=== PATIENT | male | born 1980 | race Caucasian/White ===

== ENCOUNTER 2016-11-27 08:50 | Inpatient (IN) ==
--- NOTE | 2016-11-27 09:12 | Emergency Department Note ---
START Narrative - START START: I examined this patient and my medical decision-making was reviewed with the HOUSE SERVANT/PA/Advanced Practice Nurse/Resident Physician. I agree with the documented findings, disposition and treatment plan as described except to the extent set forth below. Patient does have a history of spontaneous pneumothorax on the right. I did rev the previous record and reviewed his previous chest x-ray. He does have shortness of breath with hypoxemia and oxygen saturation 87% on room air. Does have decreased breath sounds on the right. We will place a Heimlich valve on the right. 0911 The patient did have a pigtail catheter placed in the right chest midclavicular line over the fourth rib and this was done by the internal medicine pump house technician and I was present for 100% of time while the patient had the procedure performed. The patient did have a catheter placed over the fourth rib in the midclavicular line after prepping and draping in the usual sterile fashion. This was done without complication and he did have lidocaine injected. A repeat chest x-ray did show partial expansion with just the valve placed however after that he was put on negative suction and now the lung is reexpanded on a additional x-ray. Thoracic has been constant. 1114
[2016-11-27] MEDS ORDERED: Ondansetron 4 MG/2 ML VIAL ONE (09:39)
[2016-11-27] MEDS ORDERED: *HR* LORazepam 2 MG/ML VIAL ONE (09:39)
--- NOTE | 2016-11-27 10:04 | Emergency Department Note ---
Disposition Clinical Impression: Pneumothorax, right, Recurrent spontaneous pneumothorax Disposition: Admitted As Inpatient Condition: Fair Forms: ED Satisfaction Letter SOB HPI - General Chief Complaint: ED Shortness of Breath/Dyspnea Stated Complaint: "collapsed lung" Time Seen by Provider: 11/27/16 09:00 Source: patient Limitations: no limitations - History of Present Illness 36 Y/O male with hx of multiple pneumothorax presented with chief complaint of shortness of breath. Patient woke up today with right pleuritic chest pain that radiated to the back, described as sharp, sudden onset. He has had similar pain before and was diagnosed with pneumothorax multiple times in the past. His previous admission was in may 2016. Chest x-ray shows complete right lung collapse due to pneumothorax. - Related Data Home Medications Medication Instructions Recorded Confirmed Acetaminophen [Tylenol] 1,000 mg PO Q6HR PRN 11/27/16 11/27/16 Allergies Allergy/AdvReac Type Severity Reaction Status Date / Time Penicillins Allergy Rash Verified 05/23/16 10:58 Review of Systems: ROS: Denies fevers, chills, denies pain in abdomen, lower extremities, syncope, blurry vision Admits to shortness of breath, pleuritic chest pain, cough, Past Medical History - Past Medical History Medical history: Reports: other Surgical history: Reports: other (Chest tube) Psychiatric history: Reports: no psych history - Social History Smoking Status: Current every day smoker Smokeless Tobacco Status: No Alcohol use: Reports: none Drug use: Reports: marijuana Physical Exam - General Limitations: no limitations General appearance: alert - Head Head exam: atraumatic, normocephalic - Eye Eye exam: Present: PERRL, EOMI - Neck Neck exam: Present: full ROM, trachea midline - Chest Chest inspection: Present: normal inspection - Respiratory Respiratory exam: Present: normal lung sounds bilaterally (Diminished right lung sounds upper lobe and absent lung sounds lower lobe. Normal left lobe lung sounds.), respiratory distress, accessory muscle use - Cardiovascular Cardiovascular exam: Present: regular rate, normal rhythm, +S1, +S2 - Abdominal Exam Abdominal exam: Present: soft, Non-Tender. Absent: distention - Psychiatric Psychiatric exam: Present: normal affect, anxious Course Course Narrative: Patient had a pigtail catheter inserted in the midclavicular fourth intercostal space and attached to negative pressure Repeat chest x-ray shows expansion of right lung. Patient was okay to be admitted. Dr. Swanson accepted admission. Dr. Mcbride was notified as well. Vital Signs Temperature 97.5 F L 11/27/16 08:55 Pulse Rate 71 11/27/16 08:55 Respiratory Rate 20 11/27/16 08:55 Blood Pressure 125/74 11/27/16 08:55 O2 Sat by Pulse Oximetry 87 11/27/16 08:55 Temperature 97.5 F L 11/27/16 08:55 Pulse Rate 67 11/27/16 10:43 Respiratory Rate 16 11/27/16 10:43 Blood Pressure 131/88 11/27/16 10:43 O2 Sat by Pulse Oximetry 100 11/27/16 10:43 Oxygen Delivery Oxygen Delivery Nasal Cannula Procedures - Chest Tube Chest Tube 1 Chest Tube Location: fourth interspace Chest Tube Prep: betadine prep, sterile drapes applied Local Anesthetic: lidocaine 1% Incision Made With: #10 blade Post Procedure: sutured to skin, sterile dressing applied Tube Drainage: none Amount of Initial Drainage (cc's): 0 Post Procedure CXR?: Yes Patient Tolerated Procedure: Yes Progress: Consent was obtained from patient and risks and benefits of procedure were explained. Patient was laying supine with head of bed elevated at 45 degrees and right arm raised above her head. Jevon was made at 4th rib and prepped and draped under sterile fashion. Once percent lidocaine was used to anesthetize the surrounding skin. 2 cm incision was made at the fourth rib. Pig-tail catheter was inserted through the incision and over the fourth rib into the pleural space until a roberts of air was felt. Catheter was advanced further while needle was pulled out. Catheter was sutured in place and dressing applied. CXR was ordered. Patient tolerated procedure. Dr. Pastrana was present for the entire procedure.
[2016-11-27] MEDS ORDERED: *HR* HYDROmorphone (PF) 1 MG/ML SYRINGE IVP ONE (11:54)
[2016-11-27 12:24] LABS: Basophils % 0.4 %; Eosinophils % 0.4 %; Hematocrit 46.1 % (37.5-50.1); Hemoglobin 15.7 g/dL (12.9-16.9); Immature Granulocytes % 0.2 % (0-4); Lymphocytes # 1.1 K/mcL (0.6-4.6); Lymphocytes % 10.7 %; Mean Corpuscular HGB Conc 34.1 g/dL (31.6-35.5); Mean Corpuscular Hemoglobin 29.7 pg (28.0-33.3); Mean Corpuscular Volume 87.3 fL (83.0-100.0); Monocytes # 0.5 K/mcL (0.0-1.3); Monocytes % 5.2 %; Neutrophils # 8.2 K/mcL (1.6-8.9); Platelet Count 157 K/mcL (140-400); Red Blood Count 5.28 M/mcL (4.19-5.50); Segmented Neutrophils % 83.1 %
[2016-11-27 12:32] LABS: INR 1.2; Prothrombin Time 13.5 Seconds (9.4-12.1)
[2016-11-27 12:37] LABS: BUN/Creatinine Ratio 16 (6-26); Blood Urea Nitrogen 13 mg/dL (8-26); Calcium 9.3 mg/dL (8.6-10.8); Carbon Dioxide 25 mEq/L (19-29); Chloride 106 mEq/L (98-109); Glucose 89 mg/dL (70-99); Magnesium 2.1 mg/dL (1.6-2.6); Osmolality,Calculated 288 (280-300); Sodium 139 mEq/L (136-145); eGFR For African Americans > 60 (> 60); eGFR For Non-African Americans > 60 (> 60)
--- NOTE | 2016-11-27 13:46 | Internal Med History&Physical ---
Date of Encounter: 11/27/16 Time of Encounter: 13:43 Assessment and Plan (1) Pneumothorax, right Current visit: No Status: Resolved Spontaneous right-sided pneumothorax. This is the 5th episode. Pigtail catheter please connected to wall suction. No underwater seal was placed according to surgery recommendations. Will admit to telemetry that appreciate cardiothoracic surgery input. nasal oxygen as needed. (2) DVT prophylaxis Current visit: No Status: Acute Subcutaneous heparin Internal Medicine - H&P: HPI Chief complaint: chest pain and SOB History of present illness: Mr. García is a 36 year old male 25 pack your smoking history the past medical history of spontaneous pneumothorax presents to the emergency room today with sudden onset right-sided chest pain and shortness of breath since this morning. Pain was sharp and looked similar to his prior presentations of pneumothorax. This is his 5thn episodes of pneumothorax. When questioned about the reason for that he does not have any COPD no history of long pathology but it was just e.g. public spontaneous pneumothorax. Workup emergency room showed a large right-sided pneumothorax and lung collapse. Pigtailed catheter was placed by ER physician and connected to wall suction. No underwater seal was placed according to cardiothoracic surgery recommendations. Patient hemodynamically stable during my interview speaking in full sentences. No fevers chills Past Med Surg Social Fam HX - Past Medical History Medical history: other Psychiatric history: no psych history - Past Surgical History Surgical History: other (Chest tube) - Social History Smoking Status: Current every day smoker Smokeless Tobacco Status: No Alcohol use: none Drug use: marijuana Internal Medicine - H&P: Meds Acetaminophen [Tylenol] 1,000 mg PO Q6HR PRN 11/27/16 [History] Allergies Penicillins Allergy (Verified 05/23/16 10:58) Rash All Systems PM: A 10-system review of systems was performed and is negative for pertinent findings except as documented above in the HPI. Review of systems: 10 point review systems is negative except for HPI - Constitutional Vitals: Temp Pulse Resp BP Pulse Ox 97.5 F L 57 16 113/75 97 11/27/16 08:55 11/27/16 11:44 11/27/16 12:37 11/27/16 12:37 11/27/16 11:44 Exam: Gen.: patient is alert oriented times 3 stress cardiac: normal S1 S2 no additional sounds not tachycardic chest: diminish air entry on the right side. Abdomen: soft nontender nondistended normal bowel sounds neuronal focal deficits Internal Med - H&P Results - Labs CBC & Chem 7: 11/27/16 12:06 11/27/16 12:06 Labs: Short CBC 11/27/16 Range/Units 12:06 WBC 9.8 (4.3-11.1) K/mcL Hgb 15.7 (12.9-16.9) g/dL Hct 46.1 (37.5-50.1) % Plt Count 157 (140-400) K/mcL Neutrophils # 8.2 (1.6-8.9) K/mcL BMP 11/27/16 12:06 Sodium 139 Potassium 4.0 Chloride 106 Carbon Dioxide 25 BUN 13 Creatinine 0.82 Glucose 89 Calcium 9.3
--- NOTE | 2016-11-27 14:09 | Cardiothoracic Consult Note ---
Date of Encounter: 11/27/16 Time of Encounter: 14:06 Assessment and Plan (1) Pneumothorax, right Current Visit: No Status: Resolved The assessment and plan as outlined above was discussed with the patient and/or family members who expressed understanding and agreement. All questions were answered. The patient presented with a 100% right total pneumothorax. Chest x-ray reveals that this is totally resolved with a chest tube. This is the fourth episode of spontaneous pneumothorax on the right side. He has had 1 episode on the left side. I recommended that the patient undergo surgery. This would be either right thoracoscopy or thoracotomy with stapling of blebs, mechanical and chemical pleurodesis. Risks would include , infection, pneumonia, bleeding and recurrent pneumothorax either on the right or left sides. The procedure, its risks, benefits and alternatives were explained. He states that he needs to talk to 3 or 4 people and will let us know tomorrow. At this point he has no questions. - History of Present Illness History of present illness: Mr. García is a 36 year old male History of present illness. Patient is a 36-year-old gentleman who awoke this morning with pain in his right chest and shortness of breath. Chest x-ray done in the emergency room revealed 100%, total right pneumothorax. He was treated with a chest tube with complete resolution of the pneumothorax. This is his fourth episode of right spontaneous pneumothorax. We had seen the patient in the hospital in May 2016 and recommended surgery at that time. However, the patient refused and did not follow up with our office. Past medical history. The patient has been healthy. Patient's at home include aspirin and Tylenol. He is allergic to penicillin. Social history. He lives in [place]. He works [employer]. He used to smoke 2 packs of cigarettes per day, but claims to be presently smoking less than a half pack of cigarettes per day AGAINST MEDICAL ADVICE. Does not drink alcohol. Occasionally smokes marijuana. Family history is negative for collapsed lung. Review of systems is otherwise negative. Past Med Surg Social Fam HX - Past Medical History Medical history: other Psychiatric history: no psych history - Past Surgical History Surgical History: other (Chest tube) - Social History Smoking Status: Current every day smoker Smokeless Tobacco Status: No Alcohol use: none Drug use: marijuana Medications and Allergies Acetaminophen [Tylenol] 1,000 mg PO Q6HR PRN 11/27/16 [History] Allergies Penicillins Allergy (Verified 05/23/16 10:58) Rash All Systems Review: A 10-system review of systems was performed and is negative for pertinent findings except as documented above in the HPI. Physical Examination Vital Signs, Last 4 Hours Pulse Resp BP Pulse Ox 11/27/16 13:48 86 18 114/73 94 11/27/16 12:37 16 113/75 Pupils are equal, round and reactive to light and accommodation. His teeth are in extremely poor repair. Neck is supple. Trachea in the midline. No thyromegaly or carotid bruits. Lungs are clear to percussion and auscultation. The chest tube has a small air leak with cough. Heart is in a regular rate and rhythm. No murmurs, gallops or rubs. Abdomen is benign. No tenderness, rebound or guarding. No hepatosplenomegaly or masses. Extremities without edema. 2+ pulses. Cranial nerves, motor and sensory intact. He is awake, alert and oriented 3. Results 11/27/16 12:06 11/27/16 12:06 Lab Results, Last 24 hours 11/27/16 11/27/16 11/27/16 12:06 12:06 12:06 WBC 9.8 Hgb 15.7 Hct 46.1 Plt Count 157 INR 1.2 Sodium 139 Potassium 4.0 Chloride 106 Carbon Dioxide 25 BUN 13 Creatinine 0.82 Glucose 89 Calcium 9.3 Magnesium 2.1 Consult Discharge Plan - Plan Referrals: NO,PCP [Primary Care Provider] -
[2016-11-27] MEDS: *HR* Heparin 5,000 UNIT/ML VIAL SQ SCH (17:56)
[2016-11-27] MEDS: *HR* Morphine 2 MG/ML SYRINGE IVP PRN (21:24)
[2016-11-28 05:02] LABS: Basophils # 0.1 K/mcL (0.0-0.2); Eosinophils # 0.2 K/mcL (0.0-0.6); Eosinophils % 2.8 %; Hematocrit 46.6 % (37.5-50.1); Hemoglobin 15.4 g/dL (12.9-16.9); Immature Granulocytes % 0.3 % (0-4); Lymphocytes # 2.2 K/mcL (0.6-4.6); Lymphocytes % 35.8 %; Mean Corpuscular Hemoglobin 28.9 pg (28.0-33.3); Mean Corpuscular Volume 87.4 fL (83.0-100.0); Mean Platelet Volume 10.9 fL (9.4-12.4); Monocytes # 0.5 K/mcL (0.0-1.3); Monocytes % 8.8 %; Neutrophils # 3.1 K/mcL (1.6-8.9); Platelet Count 163 K/mcL (140-400); Red Blood Count 5.33 M/mcL (4.19-5.50); Red Cell Distribution Width 12.3 % (11.5-14.5); Segmented Neutrophils % 51.3 %
[2016-11-28 05:25] LABS: BUN/Creatinine Ratio 14 (6-26); Blood Urea Nitrogen 12 mg/dL (8-26); Calcium 9.2 mg/dL (8.6-10.8); Carbon Dioxide 29 mEq/L (19-29); Chloride 105 mEq/L (98-109); Glucose 100 mg/dL (70-99); Magnesium 1.9 mg/dL (1.6-2.6); Osmolality,Calculated 292 (280-300); Potassium 4.1 mEq/L (3.5-4.5); Sodium 141 mEq/L (136-145); eGFR For African Americans > 60 (> 60); eGFR For Non-African Americans > 60 (> 60)
[2016-11-28] MEDS: *HR* Heparin 5,000 UNIT/ML VIAL SQ SCH ×2 (06:07→21:35)
[2016-11-28] MEDS: *HR* Morphine 2 MG/ML SYRINGE IVP PRN ×2 (06:09→11:24)
--- NOTE | 2016-11-28 08:04 | Cardiothoracic Progress Note ---
Date of Encounter: 11/28/16 Time of Encounter: 08:00 - Assessment and plan (1) Pneumothorax, right Current Visit: No Status: Resolved This is the fourth admission for the patient's right spontaneous pneumothorax. Chest tube was inserted and he has a small residual pneumothorax based on chest CT last night. The patient was given the option/strong recommendation that he undergo a right thoracoscopy/thoracotomy with apical bleb resection and mechanical pleurodesis. Currently he is hesitant to undergo this procedure, stating that he is the only number the family regarding paycheck and he cannot afford to be off during the required postoperative period. He is considering the operation, but will wait until the winter time. The chest tube was placed to waterseal since there was no air leak and chest x-ray repeated tomorrow. If the chest x-ray shows no pneumothorax chest tube will be removed. The assessment and plan as outlined above was discussed with the patient and/or family members who expressed understanding and agreement. All questions were answered. - Subjective Interval history: The patient is resting comfortably in his hospital bed. Vital Signs, Last 4 Hours Temp Pulse Resp BP Pulse Ox 11/28/16 07:02 98.0 F 49 15 103/52 98 11/28/16 05:02 97.5 F L 65 18 116/62 Clinical Data, last 8 Hours Output, Chest Tube Drainage 0 Amount [Right Lateral Chest] Output, Chest Tube Drainage 0 Amount [Right Lateral Chest] Output, Urine Amount 0 Weight 11/26/16 11/27/16 11/28/16 23:59 23:59 23:59 Weight 71.6 kg - Physical Examination General: Conversant, No Apparent Distress Neck: No JVD, Normal carotid pulses Cardiac: Reg Rate and Rhythm, Normal S1 and S2, No Murmur Incision: No signs of infection Chest tubes: Minimal drainage, Other (No air leak on suction.) Lungs: Normal Breath Sounds, No Wheeze, Rales, Rhonchi Neuro: Alert and responsive, No focal deficits noted Vascular: Normal capillary refill Musculoskeletal: No Chest Wall Tenderness Extremities: No Clubbing, No Cyanosis, No Edema - Labs 11/28/16 04:28 11/28/16 04:28 Lab Results, Last 24 hours 11/28/16 11/28/16 04:28 04:28 WBC 6.1 Hgb 15.4 Hct 46.6 Plt Count 163 Sodium 141 Potassium 4.1 Chloride 105 Carbon Dioxide 29 BUN 12 Creatinine 0.88 Glucose 100 H Calcium 9.2 Magnesium 1.9 - VTE Documentation of Mechanical Device: Intermittent pneumatic compression device Consult Discharge Plan - Plan Referrals: NO,PCP [Primary Care Provider] -
--- NOTE | 2016-11-28 14:16 | Internal Med Progress Note ---
Date of Encounter: 11/28/16 Time of Encounter: 11:30 - Assessment and plan (1) Recurrent spontaneous pneumothorax Current Visit: Yes Status: Acute Assessment and plan: Chest tube currently to water seal. Anticipate removal tomorrow. He wants to wait till winter to have further surgery. (2) Tobacco use disorder Current Visit: No Status: Acute Assessment and plan: Cessation counselling. - Subjective Interval history: Mr. García is currently admitted for acute spontaneous R PTX. He is high risk due to potential for worsening respiratory status - chest tube. Mr. García feels OK. No issues overnight. Breathing is OK. Chest tube to water seal at this time and no air leak. No fever or chills. - Constitutional Vitals: Temp Pulse Resp BP Pulse Ox 98.4 F 43 15 112/70 98 11/28/16 11:18 11/28/16 11:18 11/28/16 11:18 11/28/16 11:18 11/28/16 11:18 General appearance: Present: A&O X 3, pleasant, answers questions appropriately - Head Head exam: Present: normocephalic - Eye Eye exam: Present: EOMI, conjuntiva pink - ENT ENT exam: Present: mucous membranes dry - Respiratory Respiratory exam: Present: CTAB. Absent: rhonchi, wheezes - Cardiovascular Cardiovascular exam: Present: RRR. Absent: tachycardia - GI/Abdominal GI/Abdominal exam: Present: soft. Absent: tenderness - Extremities Exam Extremities exam: Present: warm. Absent: pedal edema, tenderness - Neurological Exam Neurological exam: Present: alert, oriented X3, no focal deficits - Psychiatric Psychiatric exam: Present: normal affect, normal mood - Skin Skin exam: Present: warm. Absent: rash Internal Medicine: Result - Labs CBC & Chem 7: 11/28/16 04:28 11/28/16 04:28 Labs: Short CBC 11/28/16 Range/Units 04:28 WBC 6.1 (4.3-11.1) K/mcL Hgb 15.4 (12.9-16.9) g/dL Hct 46.6 (37.5-50.1) % Plt Count 163 (140-400) K/mcL Neutrophils # 3.1 (1.6-8.9) K/mcL BMP 11/28/16 04:28 Sodium 141 Potassium 4.1 Chloride 105 Carbon Dioxide 29 BUN 12 Creatinine 0.88 Glucose 100 H Calcium 9.2 - ABG Interpretation ABG results: PT/INR, D-dimer PT 13.5 Seconds (9.4-12.1) H 11/27/16 12:06 - VTE Documentation of Mechanical Device: Intermittent pneumatic compression device Consult Discharge Plan - Plan Referrals: NO,PCP [Primary Care Provider] -
[2016-11-28] MEDS ORDERED: *HR* HYDROcodone/Acet 5/325 mg TABLET PO PRN (14:57)
[2016-11-28] MEDS ORDERED: *HR* Morphine 2 MG/ML SYRINGE IVP PRN (14:58)
[2016-11-29 06:19] VITALS: BP 107/61
[2016-11-29] MEDS: *HR* Heparin 5,000 UNIT/ML VIAL SQ SCH (06:34)
--- NOTE | 2016-11-29 08:52 | Cardiothoracic Progress Note ---
Date of Encounter: 11/29/16 Time of Encounter: 08:50 - Assessment and plan (1) Pneumothorax, right Current Visit: No Status: Resolved The patient had no respiratory complaints yesterday or throughout the night. The Pleur-evac had no air leak with cough and the chest tube was removed. The patient may be discharged home later today. The dressing should remain in place until Thursday, December 01, 2016. After that time the dressing may repeat removed and the patient may shower. The patient should follow up with Dr. Bryan Mcbride in 3-4 weeks. The assessment and plan as outlined above was discussed with the patient and/or family members who expressed understanding and agreement. All questions were answered. - Subjective Interval history: The patient is resting comfortably in his hospital bed. He has no complaints of shortness of breath. Vital Signs, Last 4 Hours Temp Pulse Resp BP Pulse Ox 11/29/16 06:18 97.4 F L 47 14 107/61 96 Weight 11/27/16 11/28/16 11/29/16 23:59 23:59 23:59 Weight 71.6 kg 67.2 kg - Physical Examination General: Conversant, No Apparent Distress Neck: No JVD, Normal carotid pulses Cardiac: Reg Rate and Rhythm, Normal S1 and S2, No Murmur Incision: No signs of infection, Dry/intact dressing Chest tubes: Minimal drainage, Other (No air leak with cough.) Lungs: Normal Breath Sounds, No Wheeze, Rales, Rhonchi Neuro: Alert and responsive, No focal deficits noted Vascular: Normal capillary refill Musculoskeletal: No Chest Wall Tenderness - Labs 11/28/16 04:28 11/28/16 04:28 - Imaging Chest Xray: image reviewed (No pneumothorax.) - VTE Documentation of Mechanical Device: Intermittent pneumatic compression device Consult Discharge Plan - Plan Referrals: NO,PCP [Primary Care Provider] -
--- NOTE | 2016-11-29 11:32 | Discharge Summary ---
Date of Encounter: 11/29/16 Time of Encounter: 10:00 - Discharge Diagnosis (1) Recurrent spontaneous pneumothorax Priority: Primary Status: Acute (2) Tobacco use disorder Priority: Secondary Status: Acute - Discharge Medications Prescriptions: HYDROcodone/Acet 5/325 mg [Wishek 5-325 mg] 1 tab PO Q6HR PRN #20 tablet PRN Reason: Moderate Pain Home Medications: HYDROcodone/Acet 5/325 mg [Wishek 5-325 mg] 1 tab PO Q6HR PRN #20 tablet [Rx] Allergies/Adverse Reactions: Allergies Penicillins Allergy (Verified 05/23/16 10:58) Rash Date of admission: 11/27/16 14:39 Primary care physician: PCP NO Consults: Cardiothoracic surgery Discharging clinician: Trev Ferrer Anticipated date of discharge: 11/29/16 - Patient Status Disposition: Home, Self-Care Condition: Good Functional capacity at discharge: independent ambulation Overall status at discharge: patient is back to baseline - Discharge Instructions Follow Up With: NO,PCP [Primary Care Provider] - Additional Instructions: Follow up with Dr. Mcbride in 3-4 weeks. Keep dressing in place till 12/01/16. No showering until 12/01/16 after dressing removed. - Diet and Activity Activity: increase activity as tolerated Diet: advance to your usual diet Hospital course: Mr. García is a 36 year old male with hx of recurrent spontaneous pneumothorax presented to ED with chest pain and dyspnea. He was found to have PTX on right. At that time small bore chest tube placed and he was admitted Mr. García was admitted to [facility]. Chest tube initially placed to suction. He was tolerating well. The next day it was placed to water seal which he tolerated. Pain was controlled with PO Wishek. CXR on 11/29/16 showed no PTX and CT removed by CT surgery. At this time he is afebrile. No dyspnea and vitals are stable. He is ready for discharge (needs to get to bank to pay rent or be evicted). Time spent discussing smoking cessation with patient: 3 to 10 minutes - Time Spent with Patient Total time spent providing and/or coordinating discharge services: 38min - Constitutional Vitals: Temp Pulse Resp BP Pulse Ox 97.4 F L 47 14 107/61 96 11/29/16 06:18 11/29/16 06:18 11/29/16 06:18 11/29/16 06:18 11/29/16 06:18 General appearance: Present: A&O X 3, pleasant, answers questions appropriately - Head Head exam: Present: normocephalic - Eye Eye exam: Present: EOMI, conjuntiva pink - ENT ENT exam: Present: mucous membranes moist - Respiratory Respiratory exam: Present: CTAB. Absent: rhonchi, wheezes - Cardiovascular Cardiovascular exam: Present: RRR. Absent: tachycardia - GI/Abdominal GI/Abdominal exam: Present: soft. Absent: tenderness - Extremities Exam Extremities exam: Present: warm. Absent: pedal edema - Neurological Exam Neurological exam: Present: alert, oriented X3, no focal deficits - Psychiatric Psychiatric exam: Present: normal affect, normal mood - Skin Skin exam: Present: warm. Absent: rash - VTE Documentation of Mechanical Device: Intermittent pneumatic compression device
== END 2016-11-29 13:14 | disposition home or self-care (01) | DRG 143 ==
LOC: EMEROO 08:50 → 2NENU 08:50
PROVIDERS: ADMIT Hospitalist; ATTEND Internal Medicine

== ENCOUNTER 2017-03-04 09:18 | Inpatient (IN) ==
--- NOTE | 2017-03-04 09:38 | Emergency Department Note ---
Disposition Clinical Impression: Pneumothorax, right, Recurrent spontaneous pneumothorax Disposition: Admitted As Inpatient Condition: Fair Referrals: NO,PCP [Primary Care Provider] - SOB HPI - General Stated Complaint: Collasped Lung Time Seen by Provider: 03/04/17 09:20 Source: patient Limitations: no limitations Nursing Notes Reviewed: Yes Vital Signs Reviewed: Yes - History of Present Illness Patient does have history of pneumothorax 6 times mostly on the right and a did review the previous record and I have seen the patient the past and presents today with sharp right-sided chest pain which began at home shortly prior to arrival located in the axillary area radiating to the back worse with breathing. Worse with exertion. Does have dyspnea which is improved relative to when his pain started initially. Denies coughing. He is concerned about a pneumothorax. No diaphoresis. Social history: Stopped smoking in November. Here with his mother. Constitutional: No fever Vision: No blurred vision ENT: No rhinorrhea Respiratory: No cough Allergic: No allergies : No blood in urine GI: No blood in stool Hematologic: No bruising Dermatologic: No skin rash Musculoskeletal: No pain in the extremities Neuro: No numbness of the extremities - Related Data Previous Rx's Medication Instructions Recorded HYDROcodone/Acet 5/325 mg [[place] 1 tab PO Q6HR PRN #20 tablet 11/29/16 5-325 mg] Allergies Allergy/AdvReac Type Severity Reaction Status Date / Time Penicillins Allergy Rash Verified 03/04/17 09:32 Review of Systems: Constitutional: No fever Vision: No blurred vision ENT: No rhinorrhea Respiratory: No cough Allergic: No allergies : No blood in urine GI: No blood in stool Hematologic: No bruising Dermatologic: No skin rash Musculoskeletal: No pain in the extremities Neuro: No numbness of the extremities Past Medical History - Past Medical History Medical history: Reports: other Surgical history: Reports: other Psychiatric history: Reports: no psych history - Social History Smoking Status: Former smoker Smokeless Tobacco Status: No Alcohol use: Reports: none Drug use: Reports: marijuana Physical Exam CONSTITUTIONAL: Alert and oriented X3, well-nourished, well appearing, in no apparent distress HEAD: Normocephalic; atraumatic. EYES: PERRL, no scleral icterus. NOSE: The nose is normal in appearance without rhinorrhea neck: No JVD RESP: Normal chest excursion with respiration; breath sounds are decreased on the right-hand side, no wheezing. Normal breath sounds on the left CARD: Regular rhythm, without murmurs, rub or gallop ABD: Non-distended; non-tender, soft,without rigidity, rebound or guarding SKIN: Normal for age and race; warm and dry; no apparent lesions - General Limitations: no limitations General appearance: alert, in no apparent distress Course Vital Signs Temperature 98.0 F 03/04/17 09:29 Pulse Rate 83 03/04/17 09:29 Respiratory Rate 20 03/04/17 09:29 Blood Pressure 118/69 03/04/17 09:29 O2 Sat by Pulse Oximetry 97 03/04/17 09:29 Temperature 98.0 F 03/04/17 09:29 Pulse Rate 70 03/04/17 10:27 Respiratory Rate 26 03/04/17 10:27 Blood Pressure 102/63 03/04/17 10:27 O2 Sat by Pulse Oximetry 93 03/04/17 10:27 Oxygen Delivery Oxygen Delivery Nasal Cannula Shortness of Breath/Dyspnea - [facility] Narrative Medical decision making narrative: Patient does have oxygen saturation 98%, heart rate is in the 60s, no signs of tension pneumothorax, chest x-ray has just been done. 09 X-ray does show a large right-sided pneumothorax without signs of hypertension. A Heimlich valve was placed by Dr. Morrison under the supervision of Dr. Hernandes. Patient will be admitted to the hospital we will discuss further with CT surgery. 1058 Critical Care Time Critical Care Time: No
[2017-03-04] MEDS ORDERED: *HR* Morphine 2 MG/ML SYRINGE IVP ONE ×2 (10:02→11:16)
[2017-03-04] MEDS ORDERED: Ondansetron 4 MG/2 ML VIAL IVP ONE (10:02)
[2017-03-04] MEDS ORDERED: Lidocaine/EPI 1:100k 1% 20 ML VIAL INFILT ONE (10:02)
--- NOTE | 2017-03-04 10:57 | Emergency Department Note ---
Disposition Clinical Impression: Pneumothorax, right, Recurrent spontaneous pneumothorax Disposition: Admitted As Inpatient Condition: Fair Referrals: NO,PCP [Primary Care Provider] - General Adult HPI - General Chief complaint: ED Shortness of Breath/Dyspnea Stated complaint: Collasped Lung Time Seen by Provider: 03/04/17 09:20 Source: patient Limitations: no limitations - History of Present Illness Pain Scale: 3 - Related Data Previous Rx's Medication Instructions Recorded HYDROcodone/Acet 5/325 mg [[place] 1 tab PO Q6HR PRN #20 tablet 11/29/16 5-325 mg] Allergies Allergy/AdvReac Type Severity Reaction Status Date / Time Penicillins Allergy Rash Verified 03/04/17 09:32 Past Medical History - Past Medical History Medical history: Reports: other Surgical history: Reports: other Psychiatric history: Reports: no psych history - Social History Smoking Status: Former smoker Smokeless Tobacco Status: No Alcohol use: Reports: none Drug use: Reports: marijuana Physical Exam - General Limitations: no limitations General appearance: alert, in no apparent distress Course Vital Signs Temperature 98.0 F 03/04/17 09:29 Pulse Rate 83 03/04/17 09:29 Respiratory Rate 20 03/04/17 09:29 Blood Pressure 118/69 03/04/17 09:29 O2 Sat by Pulse Oximetry 97 03/04/17 09:29 Temperature 98.0 F 03/04/17 09:29 Pulse Rate 70 03/04/17 10:27 Respiratory Rate 26 03/04/17 10:27 Blood Pressure 102/63 03/04/17 10:27 O2 Sat by Pulse Oximetry 93 03/04/17 10:27 Oxygen Delivery Oxygen Delivery Nasal Cannula Procedures - Chest Tube Chest Tube 1 Chest Tube Location: right (Midclavicular) Chest Tube Prep: betadine prep, sterile drapes applied Local Anesthetic: lidocaine 2%, with epi Amount of Anesthesia Used (mL): 30 Incision Made With: #11 blade Post Procedure: sutured to skin, sterile dressing applied Tube Drainage: none Post Procedure CXR?: Yes Patient Tolerated Procedure: Yes Progress: Small bore tube was placed in the anterior right mid clavicular line in the fourth intercostal space. Patient tolerated the procedure well. Post procedure chest x-ray shows reexpansion of the lung.
[2017-03-04] MEDS ORDERED: Acetaminophen 325 MG TABLET PO PRN (11:37)
[2017-03-04] MEDS ORDERED: Naloxone 0.4 MG/ML INJ IVP PRN (11:37)
--- NOTE | 2017-03-04 11:43 | Internal Med History&Physical ---
Date of Encounter: 03/04/17 Time of Encounter: 11:40 Assessment and Plan (1) Recurrent spontaneous pneumothorax Current visit: Yes Status: Acute Recurrent right spontaneous pneumothorax Maintain chest tube to suction Cardiothoracic surgery consulted. Morphine for pain. Monitor closely. May repeat chest x-ray in the morning Sequential compression devices for DVT prophylaxis. The patient will be admitted as inpatient, high risk of respiratory failure. Full code. Time spent on this admission 40 minutes (2) Marijuana use Current visit: Yes Status: Acute Smoking cessation recommended (3) Tobacco use disorder Current visit: No Status: Acute (4) DVT prophylaxis Current visit: No Status: Acute Internal Medicine - H&P: HPI Chief complaint: chest pain and SOB Admitted From: Emergency Dept History of present illness: Mr. García is a 36 year old male with a past medical history of recurrent pneumothorax, the first one 15 years ago which was on the left side and the remaining fifth 4 on the right. He was discharged from this hospital a few months ago with the same problem. Earlier today he started complaining of right -sided chest pain around 7:30 AM with a sharp type of pain worsen inspiration 8 out of 10 in intensity accompanied by shortness of breath. Chest x-ray on the emergency room showed a large right-sided pneumothorax. A small bore tube was placed in the anterior right mid clavicular line in the fourth intercostal space. Patient tolerated the procedure well. Post procedure chest x-ray shows partial reexpansion of the lung. The patient shortness of breath decreased slightly. Cardiac thoracic surgery had been contacted, currently the tube is connected to suction. Patient denies any recent cough, fever or other complaints Past Med Surg Social Fam HX - Past Medical History Medical history: other (tobacco and recurrent pneumothorax ( 1st 15 years ago), marijuana use) Psychiatric history: no psych history - Past Surgical History Surgical History: other (feet suergery, chest tubes) - Social History Smoking Status: Former smoker Packs per day: quit a few months ago Smokeless Tobacco Status: No Alcohol use: none Drug use: marijuana - Family History Father Adopted: No Living Status: Hx Family Respiratory Disorders: Yes Hx Family Endocrine Disorder: Yes - Additional Family History Additional family history: Mother and multiple family members with DM2 Internal Medicine - H&P: Meds HYDROcodone/Acet 5/325 mg [[place] 5-325 mg] 1 tab PO Q6HR PRN #20 tablet [Rx] Allergies Penicillins Allergy (Verified 03/04/17 09:32) Rash All Systems PM: A 10-system review of systems was performed and is negative for pertinent findings except as documented above in the HPI. Review of systems: Complains of chest pain, minimal shortness of breath. Other systems out of the 10 reviewed were negative - Constitutional Vitals: Temp Pulse Resp BP Pulse Ox 98.0 F 57 20 121/78 99 03/04/17 09:29 03/04/17 11:15 03/04/17 11:15 03/04/17 11:15 03/04/17 11:15 General appearance: Present: A&O X 3 - Head Head exam: Present: atraumatic, normocephalic - Eye Eye exam: Present: PERRL, conjuntiva pink, sclera anicteric Pupils: Present: PERRL - Neck Neck exam general surgery: Present: supple, trachea midline. Absent: lymphadenopathy - Respiratory Respiratory exam: Present: CTAB. Absent: accessory muscle use, rales, rhonchi, wheezes Additional comments: right upper chest chest tube - Cardiovascular Cardiovascular exam: Present: RRR, +S1, +S2. Absent: diastolic murmur, gallop, rubs, systolic murmur - GI/Abdominal GI/Abdominal exam: Present: normal bowel sounds, soft, no peritoneal signs. Absent: distended, tenderness - Extremities Exam Extremities exam: Present: warm, radial pulses palpable and symetrical. Absent : calf tenderness, cyanotic, pedal edema - Neurological Exam Neurological exam: Present: CN II-XII intact, oriented X3, no focal deficits. Absent: pronater drift, facial droop, speech deficit - Skin Skin exam: Present: dry, intact Internal Med - H&P Results - Impressions ITS Impressions Chest X-Ray 03/04/17 09:30 IMPRESSION: Large right-sided pneumothorax. Findings were conveyed to Dr. Morrison 9:45 a.m. March 04, 2017 D/ / Benitez Arceo MD / Benitez Arceo MD Interpreting Provider: Benitez Arceo MD Chest X-Ray 03/04/17 10:42 IMPRESSION: Right-sided pleural catheter projects over the right mid lung. Large residual right apical and lateral pneumothorax has mildly decreased in size since the prior examination. New right perihilar opacity may reflect atelectasis. The findings were sent to the Radiology Results Communication [facility] at 11:08 am on 03/04/2017 to be communicated to a licensed caregiver. D/ / 03/04/2017 11:11:42 Chelle Avitia MD / [email or web address] Interpreting Provider: Chelle Avitia MD
[2017-03-04] MEDS: 0.9 % Sodium Chloride 1,000 ML IVC SCH (13:45)
--- NOTE | 2017-03-04 15:00 | Cardiothoracic Consult Note ---
Date of Encounter: 03/04/17 Time of Encounter: 14:59 Assessment and Plan (1) Recurrent spontaneous pneumothorax Current Visit: Yes Status: Acute The patient is a 36-year-old man with a fifth recurrent spontaneous pneumothorax. A chest tube was placed in the emergency department with near complete resolution of the pneumothorax. The patient has consented to a right thoracotomy with apical bleb resection and mechanical pleurodesis. This procedure will be performed tomorrow. The patient understands procedure, benefits, alternatives, and risks and gives his informed consent. The procedure will be performed all morning. The assessment and plan as outlined above was discussed with the patient and/or family members who expressed understanding and agreement. All questions were answered. - History of Present Illness Consult date: 03/04/17 Requesting physician: Jc Cook Consult reason: Recurrent right spontaneous pneumothorax Chief complaint: Chest pain and shortness of breath History of present illness: Mr. García is a 36 year old otherwise healthy man with 4 previous right spontaneous pneumothoraces. The patient's last admission was November 27, 2016 when he had sudden onset of right-sided chest pain and shortness of breath. A chest x-ray performed at that time revealed a spontaneous right pneumothorax and he was treated with a chest tube. At that time the patient was recommended for right thoracotomy, apical bleb resection, and mechanical pleurodesis; however, the patient declined, stating that he needed to return to work. He stated that he would consider the operation during the winter months when he was unable to work. The patient did well until this morning when he awoke from sleep. The patient states that he was stretching when he felt sudden onset of right subscapular pain radiating around to his right anterior chest. The pain progressed and was associated with shortness of breath. The patient "knew what he had" and was evaluated at [facility] emergency department. The chest x- ray revealed near complete collapse of his right lung and a chest tube was inserted. This resolved the pneumothorax with the exception of a small right apical airspace. I spoke with the patient regarding the need for operative intervention and at this time he agrees, stating that he was "fired from his job because of his pneumothorax. 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) - Social History Smoking Status: Former smoker Packs per day: quit a few months ago Smokeless Tobacco Status: No Alcohol use: none Drug use: marijuana Occupational status: unemployed Current living situation: Home - Independent Activity Level: Independent ambulation Recent Out of Country Travel Within the Last 8 Weeks: No Exposure or Possible Exposure to Illness During Travel: No - Family History Father Adopted: [place]: Lj García Family Member Ethnicity: Non- Living Status: Age at : 52 Cause of : COPD Hx Family Cardiac Disorders: Yes Hx Family Respiratory Disorders: Yes Hx Family Cancer: No Hx Family GI Disorders: No Hx Family Genitourinary Disorders: No Hx Family Endocrine Disorder: Yes Hx Family Musculoskeletal Disorders: No Hx Family Neuromuscular Disorders: No Hx Family Neurologic Disorders: No Hx Family HEENT Disorders: No Hx Family Autoimmune Disorders: No Hx Family Reproductive Disorders: No Hx Family Psychosocial Disorders: No Hx Family Medical Disorders: No Medications and Allergies No Known Home Drugs 03/04/17 [History] Allergies Penicillins Allergy (Verified 03/04/17 09:32) Rash All Systems Review: A 10-system review of systems was performed and is negative for pertinent findings except as documented above in the HPI. Physical Examination Vital Signs, Last 4 Hours Resp BP 03/04/17 12:12 19 113/71 General: Conversant, No Apparent Distress HEENT: Atraumatic, Normocephaly, Trachea midline Neck: No JVD, Normal carotid pulses Cardiac: Reg Rate and Rhythm, Normal S1 and S2, No Murmur Lungs: Normal Breath Sounds Neuro: Alert and responsive, No focal deficits noted Vascular: Normal capillary refill Abdomen: Soft, Non-tender Musculoskeletal: No Chest Wall Tenderness, Other (Intermittent air leak and right chest tube on suction) Extremities: No Clubbing, No Cyanosis, No Edema, Normal Pulses Results - Imaging Chest Xray: image reviewed (Right apical pneumothorax.) Consult Discharge Plan - Plan Referrals: NO,PCP [Primary Care Provider] -
[2017-03-04] MEDS: *HR* Morphine 2 MG/ML SYRINGE IVP PRN (19:46)
[2017-03-04] MEDS ORDERED: Pantoprazole 40 MG VIAL IVP ONE (20:29)
[2017-03-04] MEDS: Sucralfate 1 GM TABLET PO SCH (21:21)
[2017-03-05] MEDS: *HR* Morphine 2 MG/ML SYRINGE IVP PRN (02:41)
[2017-03-05 05:45] LABS: Hematocrit 43.4 % (37.5-50.1); Hemoglobin 14.6 g/dL (12.9-16.9); Mean Corpuscular HGB Conc 33.6 g/dL (31.6-35.5); Mean Corpuscular Hemoglobin 30.3 pg (28.0-33.3); Mean Platelet Volume 11.3 fL (9.4-12.4); Platelet Count 151 K/mcL (140-400); Red Blood Count 4.82 M/mcL (4.19-5.50); Red Cell Distribution Width 12.5 % (11.5-14.5)
[2017-03-05 05:56] LABS: BUN/Creatinine Ratio 12 (6-26); Blood Urea Nitrogen 10 mg/dL (8-26); Calcium 8.8 mg/dL (8.6-10.8); Carbon Dioxide 31 mEq/L (19-29); Chloride 107 mEq/L (98-109); Glucose 100 mg/dL (70-99); Osmolality,Calculated 291 (280-300); Potassium 4.2 mEq/L (3.5-4.5); Sodium 141 mEq/L (136-145); eGFR For African Americans > 60 (> 60); eGFR For Non-African Americans > 60 (> 60)
[2017-03-05] MEDS: 0.9 % Sodium Chloride 1,000 ML IVC SCH (06:25)
--- NOTE | 2017-03-05 07:03 | Anesthesia Evaluation PreOp ---
Date of Encounter: 03/06/17 Time of Encounter: 08:30 - Past History Planned Operation: right thoracotomy, bleb resection with pleurodesis Cardiac History: Denies any Significant Hx Pulmonary History: Former smoker (quit several months ago), Other (recurrent spontaneous pneumothorax (#5)) WEB CONTENT DIRECTOR History: Denies Any Significant HX Other Medical History: Denies Any Significant HX Anesthesia History: No Prior Anesthetic Complications, Past Anesthesia ( tramatic amputaion of toes) Alcohol Use: none Drug use: marijuana Medications and Allergies No Known Home Drugs 03/04/17 [History] Allergies Penicillins Allergy (Verified 03/04/17 09:32) Rash - Meds/Allergy Pre-op Review Medications Reviewed: Yes Allergies Reviewed: Yes Beta Blockers on Current Med List: No Anesthesia Results - Labs 03/06/17 00:24 03/06/17 00:24 - Imaging Chest x-ray: report reviewed Anesthesia Exam Selected Entries 03/05/17 05:41 Temperature 97.5 F L Pulse Rate 49 Respiratory Rate 16 Blood Pressure 97/58 O2 Sat by Pulse Oximetry 98 Height: 70in Weight: 64kg NPO (# of Hours): 8 Pain Scale: 0 Pain Scale Used: Numeric (1 - 10) - WEB CONTENT DIRECTOR LOC: Oriented WEB CONTENT DIRECTOR Motor: Normal RUE, Normal LUE, Normal RLE, Normal LLE, Normal Face WEB CONTENT DIRECTOR Sensory: Normal: RUE, LUE, RLE, LLE, Face - Cardiac Rhythm: Regular Murmur: None - Pulmonary Breath Sounds: bilateral Clear Respiratory Effort: Symmetrical (right chest tube) Anesthesia Assess/Plan ASA Score: 2 Modified Pawling Scale for Level of Consciousness: Cooperative, oriented, and tranquil Anesthetic Plan: General Monitoring Plan: Standard Monitors Recovery Plan: PACU (Discussed risks of GA. Epidural offered. Questions answered and agrees to proceed.)
[2017-03-05] MEDS ORDERED: *HR* Rocuronium Bromide 50 MG/5 ML VIAL ONE ×2 (07:18→09:31)
[2017-03-05] MEDS ORDERED: *HR* Phenylephrine 10 MG/ML VIAL ONE (07:18)
[2017-03-05] MEDS ORDERED: *HR* Propofol 200 MG/20 ML VIAL IVP ONE (07:25)
[2017-03-05] MEDS ORDERED: *HR* FentaNYL (PF) 250 MCG/5 ML VIAL ONE (07:25)
[2017-03-05] MEDS ORDERED: *HR* Midazolam HCl 5 MG/5 ML VIAL IVP ONE (07:25)
[2017-03-05] MEDS ORDERED: Bupivacaine/EPI 1:200k 0.5%PF 30 ML VIAL ONE (08:32)
[2017-03-05] MEDS ORDERED: Clindamycin 900 MG/50 ML 900 MG/50 ML IV.SOLN IVPB ONE (09:00)
[2017-03-05] MEDS ORDERED: Dexamethasone 4 MG/ML VIAL ONE (10:04)
[2017-03-05] MEDS ORDERED: Ondansetron 4 MG/2 ML VIAL ONE (10:04)
[2017-03-05] MEDS ORDERED: Ketorolac 30 MG/ML VIAL IVP ONE (10:28)
[2017-03-05] MEDS ORDERED: *HR* Meperidine 25 MG/ML SYRINGE IVP PRN (10:28)
[2017-03-05] MEDS ORDERED: Ondansetron 4 MG/2 ML VIAL IVP ONE (10:28)
[2017-03-05] MEDS ORDERED: *HR* HYDROmorphone (PF) 1 MG/ML SYRINGE ONE (10:40)
[2017-03-05] MEDS: *HR* HYDROmorphone (PF) 1 MG/ML SYRINGE IVP PRN ×3 (10:42→19:01)
[2017-03-05] MEDS ORDERED: *HR* Morphine 2 MG/ML SYRINGE IVP PRN (10:45)
[2017-03-05] MEDS ORDERED: *HR* OxyCODONE/APAP 5/325 TABLET PO PRN (10:45)
[2017-03-05] MEDS ORDERED: 0.9 % Sodium Chloride w KCl 20 MEQ/1,000 ML MLS IVC SCH (10:45)
--- NOTE | 2017-03-05 10:45 | Operative Note ---
Date of procedure: 03/05/17 Pre-op diagnosis: Recurrent right spontaneous pneumothorax. Post-op diagnosis: same Procedure: 1. Right posterolateral thoracotomy. 2. Right apical bleb resection. 3. Mechanical pleurodesis. 4. Intercostal nerve block 5. Implants: None. Complications: None. Anesthesia: SUNILA Surgeon: Leah Howard Estimated blood loss (cc): 25 Specimen: Right apical blebs. Condition: stable Disposition: PACU Procedure in Detail: INDICATIONS FOR OPERATION: The patient vinod 36 year old otherwise healthy man with 4 previous right spontaneous pneumothoraces. The patient's last admission was November 27, 2016 when he had sudden onset of right-sided chest pain and shortness of breath. A chest x-ray performed at that time revealed a spontaneous right pneumothorax and he was treated with a chest tube. At that time the patient was recommended for right thoracotomy, apical bleb resection, and mechanical pleurodesis; however, the patient declined, stating that he needed to return to work. He stated that he would consider the operation during the winter months when he was unable to work. The patient did well until this morning when he awoke from sleep. The patient states that he was stretching when he felt sudden onset of right subscapular pain radiating around to his right anterior chest. The pain progressed and was associated with shortness of breath. The patient "knew what he had" and was evaluated at [facility] emergency department. The chest x- ray revealed near complete collapse of his right lung and a chest tube was inserted. This resolved the pneumothorax with the exception of a small right apical airspace. I spoke with the patient regarding the need for operative intervention and at this time he agrees, stating that he was "fired from his job because of his pneumothorax. " FINDINGS AT OPERATION: The patient had 3 separate areas of right apical blebs. No other abnormalities were noted. DESCRIPTION OF OPERATION: After obtaining informed consent from the patient, he was taken to the operating room where satisfactory general endotracheal anesthetic was induced. A double-lumen endotracheal tube was inserted as were other appropriate monitoring lines. The patient was then turned in the left lateral decubitus position and his right lateral chest was prepped and draped in a sterile fashion. A standard right posterolateral thoracotomy incision was made through the skin and subcutaneous tissue. The latissimus dorsi muscle group was divided and the serratus anterior muscle group was reflected medially. The fourth intercostal space was entered and a gentle expiration was performed. Patient was found to have 3 separate areas of right apical blebs. No other abnormalities were noted. The right apical blebs were removed using a ISH stapling device. The sites were checked for air leaks and none were identified. A mechanical pleurodesis was performed using a gauze sponge. The entire parietal pleura and the diaphragm were obtained with the gauze sponge to help in adhesion between the lung and the chest wall. Two 32 Czech Alvarez were placed, one anteriorly and one posteriorly. The ribs were reapproximated using #1 Vicryl suture and the radius anterior muscle group, latissimus dorsi muscle group, subcutaneous tissue, and skin edges were reapproximated using running Vicryl sutures. Sterile dressings were applied. The patient was transferred to the postanesthesia care unit in satisfactory postoperative condition. There were no intraoperative complications, and the attachment, needle, and sponge count were correct at end of operation.
[2017-03-05] MEDS ORDERED: *HR* HYDROmorphone 20 MG/20 ML PCA IVC PRN (10:48)
--- NOTE | 2017-03-05 11:24 | Anesthesia Evaluation Post Op ---
Date of Encounter: 03/05/17 Time of Encounter: 11:24 - Vital Signs Vital Signs: Last Vital Signs Temp 97.2 F L 03/05/17 11:02 Pulse 50 03/05/17 11:12 Resp 11 03/05/17 11:12 BP 132/77 03/05/17 11:12 Pulse Ox 96 03/05/17 11:12 - Lungs Lungs: Clear Ascult./Percussion - Airway Airway: Non-obstructed - Cardiovascular Regular Rate - Mental Status Mental Status: Alert & Oriented, Answers Appropriately - Pain Pain Scale: 4 - Nausea Vomiting Nausea Vomiting: Not Present - Hydration Hydration: NPO - Discharge PostOp Status: Transfer Patient to floor
[2017-03-05] MEDS: Sucralfate 1 GM TABLET PO SCH ×4 (12:27→21:37)
[2017-03-05] MEDS: Ringers Solution, Lactated 1,000 ML IVC SCH ×2 (12:27→21:38)
[2017-03-05] MEDS: Ketorolac 15 MG/ML VIAL IVP SCH ×2 (12:32→18:13)
[2017-03-05] MEDS: Ondansetron 4 MG/2 ML VIAL IVP PRN ×2 (13:48→21:38)
[2017-03-05] MEDS: Albuterol 2.5 MG/3 ML NEBULIZER IH SCH ×4 (16:08→23:14)
[2017-03-05] MEDS: Clindamycin 900 MG/50 ML 900 MG/50 ML IV.SOLN IVPB SCH (16:09)
[2017-03-05] MEDS: *HR* Heparin 5,000 UNIT/ML VIAL SQ SCH (18:13)
[2017-03-05] MEDS ORDERED: *HR* HYDROmorphone 2 MG/ML SYRINGE IVP PRN (18:41)
--- NOTE | 2017-03-05 18:54 | Internal Med Progress Note ---
Date of Encounter: 03/05/17 Time of Encounter: 18:52 - Assessment and plan (1) Recurrent spontaneous pneumothorax Current Visit: Yes Status: Acute Assessment and plan: Per CTS. Will plan to transfer to surgery service tomorrow if no issues. (2) Marijuana use Current Visit: Yes Status: Chronic - Subjective Interval history: Mr. García is currently admitted for spontaneous R PTX. He has gone to OR today for resection of blebs and pleurodesis. He is seen briefly post operative. - Constitutional Vitals: Temp Pulse Resp BP Pulse Ox 97.4 F L 69 16 122/70 98 03/05/17 18:37 03/05/17 18:37 03/05/17 18:37 03/05/17 18:37 03/05/17 18:37 General appearance: Present: A&O X 3 - Head Head exam: Present: normocephalic - Eye Eye exam: Present: conjuntiva pink - ENT ENT exam: Present: mucous membranes dry - Respiratory Respiratory exam: Present: decreased breath sounds Additional comments: Chest tubes in place - Cardiovascular Cardiovascular exam: Present: RRR. Absent: systolic murmur - Extremities Exam Extremities exam: Present: warm. Absent: tenderness Internal Medicine: Result - Labs CBC & Chem 7: 03/05/17 04:59 03/05/17 04:59 Labs: Short CBC 03/05/17 Range/Units 04:59 WBC 7.2 (4.3-11.1) K/mcL Hgb 14.6 (12.9-16.9) g/dL Hct 43.4 (37.5-50.1) % Plt Count 151 (140-400) K/mcL BMP 03/05/17 04:59 Sodium 141 Potassium 4.2 Chloride 107 Carbon Dioxide 31 H BUN 10 Creatinine 0.81 Glucose 100 H Calcium 8.8 - Impressions Impressions Chest X-Ray 03/05/17 10:45 IMPRESSION: No pneumothorax or infiltrate following right thoracotomy. D/ / Giovanny Jean MD / Giovanny Jean MD Interpreting Provider: Giovanny Jaen MD - VTE Documentation of Mechanical Device: Intermittent pneumatic compression device Consult Discharge Plan - Plan Referrals: Leah Howard MD [Partnered Physician] - (SENT WEB REQUEST ON 03-05-17 @ [id number]) Bobby Reina DO [Resident] - 03/16/17 3:20 pm (PLEASE FILL OUT THE NEW PATIENT PACKET BEING MAILED TO YOU AND TAKE TO YOUR APPOINTMENT. TAKE PICTURE ID, INS. CARD, AND ALL MEDICATIONS IN THE BOTTLES TO YOUR APPOINTMENT. TAKE YOUR DISCHARGE SUMMARY. SHOW UP 30 MINUTES EARLY FOR YOUR APPOINTMENT. IF YOU NEED TO CANCEL PLEASE CALL [phone] WITH 24 HOURS OF YOUR APPOINTMENT. THANKS) NO,PCP [Primary Care Provider] -
[2017-03-06] MEDS: Ketorolac 15 MG/ML VIAL IVP SCH ×4 (00:15→17:51)
[2017-03-06] MEDS: Clindamycin 900 MG/50 ML 900 MG/50 ML IV.SOLN IVPB SCH (00:16)
[2017-03-06 00:59] LABS: Basophils % 0.1 %; Hematocrit 47.2 % (37.5-50.1); Hemoglobin 15.6 g/dL (12.9-16.9); Immature Granulocytes % 0.4 % (0-4); Lymphocytes # 0.4 K/mcL (0.6-4.6); Lymphocytes % 2.7 %; Mean Corpuscular HGB Conc 33.1 g/dL (31.6-35.5); Mean Corpuscular Hemoglobin 29.3 pg (28.0-33.3); Mean Corpuscular Volume 88.7 fL (83.0-100.0); Mean Platelet Volume 11.1 fL (9.4-12.4); Monocytes # 0.8 K/mcL (0.0-1.3); Monocytes % 5.4 %; Neutrophils # 14.1 K/mcL (1.6-8.9); Platelet Count 168 K/mcL (140-400); Red Blood Count 5.32 M/mcL (4.19-5.50); Red Cell Distribution Width 12.2 % (11.5-14.5); Segmented Neutrophils % 91.4 %
[2017-03-06 01:13] LABS: BUN/Creatinine Ratio 12 (6-26); Blood Urea Nitrogen 10 mg/dL (8-26); Calcium 9.6 mg/dL (8.6-10.8); Carbon Dioxide 26 mEq/L (19-29); Chloride 102 mEq/L (98-109); Glucose 129 mg/dL (70-99); Osmolality,Calculated 287 (280-300); Potassium 4.9 mEq/L (3.5-4.5); Sodium 138 mEq/L (136-145); eGFR For African Americans > 60 (> 60); eGFR For Non-African Americans > 60 (> 60)
[2017-03-06] MEDS: Albuterol 2.5 MG/3 ML NEBULIZER IH SCH ×6 (03:00→22:59)
[2017-03-06] MEDS: Ondansetron 4 MG/2 ML VIAL IVP PRN ×2 (03:19→15:02)
[2017-03-06] MEDS: *HR* HYDROmorphone (PF) 1 MG/ML SYRINGE IVP PRN ×2 (03:19→05:41)
[2017-03-06] MEDS: *HR* Heparin 5,000 UNIT/ML VIAL SQ SCH ×2 (05:40→17:50)
--- NOTE | 2017-03-06 07:52 | Cardiothoracic Progress Note ---
Date of Encounter: 03/06/17 Time of Encounter: 07:49 - Assessment and plan (1) Recurrent spontaneous pneumothorax Current Visit: Yes Status: Acute The patient is covering well from his right thoracotomy with apical bleb resection and mechanical pleurodesis. He is breathing comfortably. His postoperative pain is fairly well controlled. He will begin ambulating in the hallways off suction today. The assessment and plan as outlined above was discussed with the patient and/or family members who expressed understanding and agreement. All questions were answered. - Subjective Procedure(s) Performed: POD#1 S/P Right thoracotomy with apical bleb resection Interval history: The patient remained hemodynamically stable overnight. He is breathing comfortably. His postoperative pain is fairly well controlled with intravenous morphine. Vital Signs, Last 4 Hours Temp Pulse Resp BP Pulse Ox 03/06/17 07:08 98.1 F 66 18 130/73 99 03/06/17 04:08 97.6 F 54 15 111/74 96 Oxgyen Flow Rate Oxygen Flow Rate (LPM) 0 Clinical Data, last 8 Hours Output, Chest Tube Drainage 0 Amount [chest tube #2] Output, Chest Tube Drainage 0 Amount [chest tube #2] Output, Chest Tube Drainage 0 Amount [chest tube #2] Output, Chest Tube Drainage 22 Amount [Right Lateral Chest] Output, Chest Tube Drainage 22 Amount [Right Lateral Chest] Output, Chest Tube Drainage 0 Amount [Right Lateral Chest] Output, Urine Amount 525 Weight 03/04/17 03/05/17 03/06/17 23:59 23:59 23:59 Weight 64 kg 69.4 kg - Physical Examination General: Conversant, No Apparent Distress Neck: No JVD, Normal carotid pulses Cardiac: Reg Rate and Rhythm, Normal S1 and S2, No Murmur Incision: No signs of infection, Dry/intact dressing Chest tubes: Minimal drainage, Air leak Lungs: Normal Breath Sounds, No Wheeze, Rales, Rhonchi Neuro: Alert and responsive, No focal deficits noted Vascular: Normal capillary refill Extremities: No Clubbing, No Cyanosis, No Edema, Normal Pulses - Labs 03/06/17 00:24 03/06/17 00:24 Lab Results, Last 24 hours 03/06/17 03/06/17 00:24 00:24 WBC 15.4 H D Hgb 15.6 Hct 47.2 Plt Count 168 Sodium 138 Potassium 4.9 H Chloride 102 Carbon Dioxide 26 BUN 10 Creatinine 0.82 Glucose 129 H Calcium 9.6 - Imaging Chest Xray: image reviewed (No pneumothorax. Minimal atelectasis/infiltrates.) - VTE Documentation of Mechanical Device: Intermittent pneumatic compression device Consult Discharge Plan - Plan Referrals: Leah Howard MD [Partnered Physician] - (SENT WEB REQUEST ON 03-05-17 @ [phone]) Bobby Reina DO [Resident] - 03/16/17 3:20 pm (PLEASE FILL OUT THE NEW PATIENT PACKET BEING MAILED TO YOU AND TAKE TO YOUR APPOINTMENT. TAKE PICTURE ID, INS. CARD, AND ALL MEDICATIONS IN THE BOTTLES TO YOUR APPOINTMENT. TAKE YOUR DISCHARGE SUMMARY. SHOW UP 30 MINUTES EARLY FOR YOUR APPOINTMENT. IF YOU NEED TO CANCEL PLEASE CALL [phone] WITH 24 HOURS OF YOUR APPOINTMENT. THANKS) NO,PCP [Primary Care Provider] -
[2017-03-06] MEDS: Sucralfate 1 GM TABLET PO SCH ×5 (08:26→23:15)
[2017-03-06] MEDS: *HR* HYDROmorphone 2 MG/ML SYRINGE IVP PRN ×7 (08:58→23:15)
--- NOTE | 2017-03-06 12:21 | Internal Med Progress Note ---
Date of Encounter: 03/06/17 Time of Encounter: 12:21 - Assessment and plan (1) Recurrent spontaneous pneumothorax Current Visit: Yes Status: Acute Assessment and plan: Per CTS. (2) Marijuana use Current Visit: Yes Status: Chronic Assessment and plan: Encourage cessation - Subjective Interval history: Seen and evaluated a bedside Sitting up in bed, has no new complains Attempting to go on a walk with his RN POD#1 S/P Right thoracotomy with apical bleb resection - Constitutional Vitals: Temp Pulse Resp BP Pulse Ox 98.0 F 75 16 122/67 95 03/06/17 11:46 03/06/17 11:56 03/06/17 11:46 03/06/17 11:46 03/06/17 11:56 General appearance: Present: A&O X 3, pleasant, no acute distress - Head Head exam: Present: atraumatic, normocephalic - Eye Eye exam: Present: PERRL, conjuntiva pink, sclera anicteric Pupils: Present: PERRL - ENT Additional comments: poor oral dentition - Neck Neck exam general surgery: Present: supple, trachea midline. Absent: lymphadenopathy - Respiratory Respiratory exam: Present: CTAB. Absent: accessory muscle use, rales, rhonchi, wheezes Additional comments: R chest wall with chest tube actively draining, dressing clean and dry - Cardiovascular Cardiovascular exam: Present: RRR, +S1, +S2. Absent: diastolic murmur, gallop, rubs, systolic murmur - GI/Abdominal GI/Abdominal exam: Present: normal bowel sounds, soft, no peritoneal signs. Absent: distended, tenderness - Extremities Exam Extremities exam: Present: warm, radial pulses palpable and symetrical. Absent : calf tenderness, cyanotic, pedal edema - Neurological Exam Neurological exam: Present: alert, CN II-XII intact, oriented X3, no focal deficits. Absent: pronater drift, facial droop, speech deficit - Skin Skin exam: Present: dry, intact Internal Medicine: Result - Labs CBC & Chem 7: 03/06/17 00:24 03/06/17 00:24 Labs: Short CBC 03/06/17 Range/Units 00:24 WBC 15.4 H D (4.3-11.1) K/mcL Hgb 15.6 (12.9-16.9) g/dL Hct 47.2 (37.5-50.1) % Plt Count 168 (140-400) K/mcL Neutrophils # 14.1 H (1.6-8.9) K/mcL BMP 03/06/17 00:24 Sodium 138 Potassium 4.9 H Chloride 102 Carbon Dioxide 26 BUN 10 Creatinine 0.82 Glucose 129 H Calcium 9.6 - Impressions Impressions Chest X-Ray 03/06/17 06:00 IMPRESSION: No discernible pneumothorax. Clear lungs. D/ / Carloz Thomas MD / Carloz Thomas MD Interpreting Provider: Carloz Thomas MD - VTE Documentation of Mechanical Device: Intermittent pneumatic compression device Consult Discharge Plan - Plan Referrals: Leah Howard MD [Partnered Physician] - (SENT WEB REQUEST ON 03-05-17 @ [phone]) Bobby Reina DO [Resident] - 03/16/17 3:20 pm (PLEASE FILL OUT THE NEW PATIENT PACKET BEING MAILED TO YOU AND TAKE TO YOUR APPOINTMENT. TAKE PICTURE ID, INS. CARD, AND ALL MEDICATIONS IN THE BOTTLES TO YOUR APPOINTMENT. TAKE YOUR DISCHARGE SUMMARY. SHOW UP 30 MINUTES EARLY FOR YOUR APPOINTMENT. IF YOU NEED TO CANCEL PLEASE CALL [phone] WITH 24 HOURS OF YOUR APPOINTMENT. THANKS) NONE,PCP [Primary Care Provider] -
[2017-03-06] MEDS ORDERED: Clindamycin 600 MG/50 ML IV.SOLN IVPB ONE (14:46)
[2017-03-07] MEDS: Ketorolac 15 MG/ML VIAL IVP SCH ×4 (00:10→18:06)
[2017-03-07] MEDS: *HR* HYDROmorphone 2 MG/ML SYRINGE IVP PRN ×7 (03:45→20:45)
[2017-03-07] MEDS: Albuterol 2.5 MG/3 ML NEBULIZER IH SCH ×5 (04:38→20:13)
[2017-03-07] MEDS: Sucralfate 1 GM TABLET PO SCH (06:26)
[2017-03-07] MEDS: *HR* Heparin 5,000 UNIT/ML VIAL SQ SCH ×2 (06:26→18:06)
[2017-03-07] MEDS: Ondansetron 4 MG/2 ML VIAL IVP PRN (06:53)
--- NOTE | 2017-03-07 08:59 | Cardiothoracic Progress Note ---
Date of Encounter: 03/07/17 Time of Encounter: 08:58 - Assessment and plan (1) Recurrent spontaneous pneumothorax Current Visit: Yes Status: Acute The patient is covering well from his right thoracotomy with apical bleb resection and mechanical pleurodesis. He is breathing comfortably. His postoperative pain is fairly well controlled. He will continue ambulating in the hallways off suction today. The assessment and plan as outlined above was discussed with the patient and/or family members who expressed understanding and agreement. All questions were answered. - Subjective Procedure(s) Performed: POD#2 S/P Right thoracotomy with apical bleb resection Interval history: The patient remained hemodynamically stable overnight. He is breathing comfortably. His postoperative pain is fairly well controlled with intravenous Dilaudid. Vital Signs, Last 4 Hours Temp Pulse Resp BP Pulse Ox 03/07/17 08:37 16 142/80 95 03/07/17 08:34 77 96 03/07/17 07:14 97.9 F 67 18 142/80 94 Oxgyen Flow Rate Oxygen Flow Rate (LPM) 0 Clinical Data, last 8 Hours Output, Chest Tube Drainage 0 Amount [chest tube #2] Output, Chest Tube Drainage 0 Amount [chest tube #2] Output, Chest Tube Drainage 0 Amount [Right Lateral Chest] Output, Chest Tube Drainage 0 Amount [Right Lateral Chest] Output, Urine Amount 225 Output, Urine Amount 400 Weight 03/05/17 03/06/17 03/07/17 23:59 23:59 23:59 Weight 64 kg 69.4 kg 68.5 kg - Physical Examination General: Conversant, No Apparent Distress Neck: No JVD, Normal carotid pulses Cardiac: Reg Rate and Rhythm, Normal S1 and S2, No Murmur Incision: No signs of infection, Dry/intact dressing Chest tubes: Minimal drainage, Air leak Lungs: Normal Breath Sounds, No Wheeze, Rales, Rhonchi Neuro: Alert and responsive, No focal deficits noted Vascular: Normal capillary refill Extremities: No Clubbing, No Cyanosis, No Edema - Labs 03/06/17 00:24 03/06/17 00:24 - Imaging Chest Xray: image reviewed (Small right apical pneumothorax.) - VTE Documentation of Mechanical Device: Intermittent pneumatic compression device Consult Discharge Plan - Plan Referrals: Leah Howard MD [Partnered Physician] - (SENT WEB REQUEST ON 03-05-17 @ [phone]) Bobby Reina, [Resident] - 03/16/17 3:20 pm (PLEASE FILL OUT THE NEW PATIENT PACKET BEING MAILED TO YOU AND TAKE TO YOUR APPOINTMENT. TAKE PICTURE ID, INS. CARD, AND ALL MEDICATIONS IN THE BOTTLES TO YOUR APPOINTMENT. TAKE YOUR DISCHARGE SUMMARY. SHOW UP 30 MINUTES EARLY FOR YOUR APPOINTMENT. IF YOU NEED TO CANCEL PLEASE CALL [phone] WITH 24 HOURS OF YOUR APPOINTMENT. THANKS) NONE,PCP [Primary Care Provider] -
[2017-03-07] MEDS: amLODIPine 5 MG TABLET PO SCH (10:22)
--- NOTE | 2017-03-07 12:12 | Internal Med Progress Note ---
Date of Encounter: 03/07/17 Time of Encounter: 11:20 - Assessment and plan (1) Recurrent spontaneous pneumothorax Current Visit: Yes Status: Acute Assessment and plan: Per CTS. CXR today with small apical pneumothroax No infiltrates Continue pain control (2) Marijuana use Current Visit: Yes Status: Chronic Assessment and plan: Encourage cessation (3) Hypertension Current Visit: Yes Status: Chronic Assessment and plan: BP since admission elevated Started on amlodipine 5mg po daily and titrate prn Qualifiers: Hypertension type: essential hypertension Qualified Code(s): I10 - Essential (primary) hypertension (4) Leukocytosis Current Visit: Yes Status: Acute Assessment and plan: Afebrile, no evidence of infection, continue to monitor Qualifiers: Leukocytosis type: unspecified Qualified Code(s): D72.829 - Elevated white blood cell count, unspecified - Subjective Interval history: Seen and evaluated a bedside No new complains POD#2 S/P Right thoracotomy with apical bleb resection - Constitutional Vitals: Temp Pulse Resp BP Pulse Ox 97.9 F 72 12 137/84 96 03/07/17 07:14 03/07/17 11:41 03/07/17 11:41 03/07/17 11:41 03/07/17 11:41 General appearance: Present: A&O X 3, pleasant, no acute distress - Head Head exam: Present: atraumatic, normocephalic - Eye Eye exam: Present: PERRL, conjuntiva pink, sclera anicteric Pupils: Present: PERRL - ENT Additional comments: Poor oral dentition - Neck Neck exam general surgery: Present: supple, trachea midline. Absent: lymphadenopathy - Respiratory Respiratory exam: Present: CTAB. Absent: accessory muscle use, rales, rhonchi, wheezes Additional comments: R chest wall dressing clean and dry, tubes draining - Cardiovascular Cardiovascular exam: Present: RRR, +S1, +S2. Absent: diastolic murmur, gallop, rubs, systolic murmur - GI/Abdominal GI/Abdominal exam: Present: normal bowel sounds, soft, no peritoneal signs. Absent: distended, tenderness - Extremities Exam Extremities exam: Present: warm, radial pulses palpable and symetrical. Absent : calf tenderness, cyanotic, pedal edema - Neurological Exam Neurological exam: Present: alert, CN II-XII intact, oriented X3, no focal deficits. Absent: pronater drift, facial droop, speech deficit - Skin Skin exam: Present: dry, intact Internal Medicine: Result - Labs CBC & Chem 7: 03/06/17 00:24 03/06/17 00:24 - Impressions Impressions Chest X-Ray 03/07/17 06:00 IMPRESSION: Tiny right apical pneumothorax is stable positioning of right thoracostomy tubes. D/ / Georgina Avitia MD / Georgina Avitia MD Interpreting Provider: Georgina Avitia MD - VTE Documentation of Mechanical Device: Intermittent pneumatic compression device Consult Discharge Plan - Plan Referrals: Leah Howard MD [Partnered Physician] - (SENT WEB REQUEST ON 03-05-17 @ [phone]) Bobby Reina DO [Resident] - 03/16/17 3:20 pm (PLEASE FILL OUT THE NEW PATIENT PACKET BEING MAILED TO YOU AND TAKE TO YOUR APPOINTMENT. TAKE PICTURE ID, INS. CARD, AND ALL MEDICATIONS IN THE BOTTLES TO YOUR APPOINTMENT. TAKE YOUR DISCHARGE SUMMARY. SHOW UP 30 MINUTES EARLY FOR YOUR APPOINTMENT. IF YOU NEED TO CANCEL PLEASE CALL [phone] WITH 24 HOURS OF YOUR APPOINTMENT. THANKS) NONE,PCP [Primary Care Provider] -
[2017-03-08] MEDS: Albuterol 2.5 MG/3 ML NEBULIZER IH SCH ×7 (00:17→23:48)
[2017-03-08] MEDS: Ketorolac 15 MG/ML VIAL IVP SCH ×4 (00:36→17:01)
[2017-03-08] MEDS: *HR* HYDROmorphone 2 MG/ML SYRINGE IVP PRN ×7 (00:37→21:47)
[2017-03-08 01:40] LABS: Basophils % 0.4 %; Eosinophils # 0.1 K/mcL (0.0-0.6); Eosinophils % 1.7 %; Hematocrit 40.8 % (37.5-50.1); Immature Granulocytes % 0.3 % (0-4); Lymphocytes # 1.5 K/mcL (0.6-4.6); Lymphocytes % 21.2 %; Mean Corpuscular HGB Conc 33.6 g/dL (31.6-35.5); Mean Corpuscular Volume 89.3 fL (83.0-100.0); Mean Platelet Volume 10.5 fL (9.4-12.4); Monocytes # 0.8 K/mcL (0.0-1.3); Monocytes % 11.5 %; Neutrophils # 4.5 K/mcL (1.6-8.9); Platelet Count 134 K/mcL (140-400); Red Blood Count 4.57 M/mcL (4.19-5.50); Red Cell Distribution Width 12.2 % (11.5-14.5); Segmented Neutrophils % 64.9 %
[2017-03-08 01:52] LABS: BUN/Creatinine Ratio 11 (6-26); Blood Urea Nitrogen 9 mg/dL (8-26); Calcium 9.4 mg/dL (8.6-10.8); Carbon Dioxide 32 mEq/L (19-29); Chloride 101 mEq/L (98-109); Glucose 118 mg/dL (70-99); Hemoglobin 13.7 g/dL (12.9-16.9); Osmolality,Calculated 292 (280-300); Potassium 3.6 mEq/L (3.5-4.5); Sodium 141 mEq/L (136-145); eGFR For African Americans > 60 (> 60); eGFR For Non-African Americans > 60 (> 60)
[2017-03-08] MEDS: *HR* Heparin 5,000 UNIT/ML VIAL SQ SCH ×2 (05:34→17:01)
[2017-03-08] MEDS: amLODIPine 5 MG TABLET PO SCH (07:25)
--- NOTE | 2017-03-08 08:32 | Cardiothoracic Progress Note ---
Date of Encounter: 03/08/17 Time of Encounter: 08:31 - Assessment and plan (1) Recurrent spontaneous pneumothorax Current Visit: Yes Status: Acute The patient is covering well from his right thoracotomy with apical bleb resection and mechanical pleurodesis. He is breathing comfortably. His postoperative pain is fairly well controlled. He continues to have an intermittent air leak and chest tube #2 and the chest tube remained on suction when he is not ambulating. He will continue ambulating in the hallways off suction today. The assessment and plan as outlined above was discussed with the patient and/or family members who expressed understanding and agreement. All questions were answered. - Subjective Procedure(s) Performed: POD#3 S/P Right thoracotomy with apical bleb resection Interval history: The patient remained hemodynamically stable overnight. He is breathing comfortably. His postoperative pain is fairly well controlled with intravenous Dilaudid. Vital Signs, Last 4 Hours Temp Pulse Resp BP Pulse Ox 03/08/17 07:49 97.9 F 90 16 115/67 97 03/08/17 07:36 15 94 03/08/17 07:27 63 Oxgyen Flow Rate Oxygen Flow Rate (LPM) 0 Clinical Data, last 8 Hours Output, Chest Tube Drainage 13 Amount [chest tube #2] Output, Chest Tube Drainage 0 Amount [chest tube #2] Output, Chest Tube Drainage 0 Amount [chest tube #2] Output, Chest Tube Drainage 30 Amount [Right Lateral Chest] Output, Chest Tube Drainage 0 Amount [Right Lateral Chest] Output, Chest Tube Drainage 0 Amount [Right Lateral Chest] Output, Urine Amount 250 Output, Urine Amount 200 Weight 03/06/17 03/07/17 03/08/17 23:59 23:59 23:59 Weight 69.4 kg 68.5 kg 68.3 kg - Physical Examination General: Conversant, No Apparent Distress Neck: No JVD, Normal carotid pulses Cardiac: Reg Rate and Rhythm, Normal S1 and S2, No Murmur Incision: No signs of infection, Dry/intact dressing Chest tubes: Minimal drainage, Air leak Lungs: Normal Breath Sounds, No Wheeze, Rales, Rhonchi Neuro: Alert and responsive, No focal deficits noted Vascular: Normal capillary refill Extremities: No Clubbing, No Cyanosis, No Edema, Normal Pulses - Labs 03/08/17 01:32 03/08/17 01:32 Lab Results, Last 24 hours 03/08/17 03/08/17 01:32 01:32 WBC 7.0 D Hgb 13.7 D Hct 40.8 Plt Count 134 L Sodium 141 Potassium 3.6 D Chloride 101 Carbon Dioxide 32 H BUN 9 Creatinine 0.80 Glucose 118 H Calcium 9.4 - Imaging Chest Xray: image reviewed (No pneumothorax.) - VTE Documentation of Mechanical Device: Intermittent pneumatic compression device Consult Discharge Plan - Plan Referrals: Leah Howard MD [Partnered Physician] - (SENT WEB REQUEST ON 03-05-17 @ [phone]) Bobby Reina DO [Resident] - 03/16/17 3:20 pm (PLEASE FILL OUT THE NEW PATIENT PACKET BEING MAILED TO YOU AND TAKE TO YOUR APPOINTMENT. TAKE PICTURE ID, INS. CARD, AND ALL MEDICATIONS IN THE BOTTLES TO YOUR APPOINTMENT. TAKE YOUR DISCHARGE SUMMARY. SHOW UP 30 MINUTES EARLY FOR YOUR APPOINTMENT. IF YOU NEED TO CANCEL PLEASE CALL [phone] WITH 24 HOURS OF YOUR APPOINTMENT. THANKS) NONE,PCP [Primary Care Provider] -
--- NOTE | 2017-03-08 12:39 | Internal Med Progress Note ---
Date of Encounter: 03/08/17 Time of Encounter: 10:10 - Assessment and plan (1) Recurrent spontaneous pneumothorax Current Visit: Yes Status: Acute Assessment and plan: Per CTS. CXR today with no pneumothroax No infiltrates Continue pain control, begin to titrate medications with aim to switch to po (2) Marijuana use Current Visit: Yes Status: Chronic Assessment and plan: Encourage cessation (3) Hypertension Current Visit: Yes Status: Chronic Assessment and plan: BP since admission elevated, improved with Norvasc, continue same Qualifiers: Hypertension type: essential hypertension Qualified Code(s): I10 - Essential (primary) hypertension (4) Leukocytosis Current Visit: Yes Status: Resolved Assessment and plan: Afebrile, no evidence of infection, resolved without treatment Qualifiers: Leukocytosis type: unspecified Qualified Code(s): D72.829 - Elevated white blood cell count, unspecified - Subjective Interval history: Seen and evaluated a bedside No new complains POD#3 S/P Right thoracotomy with apical bleb resection - Constitutional Vitals: Temp Pulse Resp BP Pulse Ox 98.4 F 68 16 136/90 96 03/08/17 10:54 03/08/17 10:54 03/08/17 11:01 03/08/17 10:54 03/08/17 11:01 General appearance: Present: A&O X 3, pleasant, no acute distress - Head Head exam: Present: atraumatic, normocephalic - Eye Eye exam: Present: PERRL, conjuntiva pink, sclera anicteric Pupils: Present: PERRL - ENT Additional comments: Poor oral hygeine and dentition - Neck Neck exam general surgery: Present: supple, trachea midline. Absent: lymphadenopathy - Respiratory Respiratory exam: Present: CTAB. Absent: accessory muscle use, rales, rhonchi, wheezes Additional comments: R chest wall dressing clean and dry, tubes draining - Cardiovascular Cardiovascular exam: Present: RRR, +S1, +S2. Absent: diastolic murmur, gallop, rubs, systolic murmur - GI/Abdominal GI/Abdominal exam: Present: normal bowel sounds, soft, no peritoneal signs. Absent: distended, tenderness - Extremities Exam Extremities exam: Present: warm, radial pulses palpable and symetrical. Absent : calf tenderness, cyanotic, pedal edema - Neurological Exam Neurological exam: Present: alert, CN II-XII intact, oriented X3, no focal deficits. Absent: pronater drift, facial droop, speech deficit - Skin Skin exam: Present: dry, intact Internal Medicine: Result - Labs CBC & Chem 7: 03/08/17 01:32 03/08/17 01:32 Labs: Short CBC 03/08/17 Range/Units 01:32 WBC 7.0 D (4.3-11.1) K/mcL Hgb 13.7 D (12.9-16.9) g/dL Hct 40.8 (37.5-50.1) % Plt Count 134 L (140-400) K/mcL Neutrophils # 4.5 (1.6-8.9) K/mcL BMP 03/08/17 01:32 Sodium 141 Potassium 3.6 D Chloride 101 Carbon Dioxide 32 H BUN 9 Creatinine 0.80 Glucose 118 H Calcium 9.4 - Impressions Impressions Chest X-Ray 03/08/17 06:00 IMPRESSION: Right-sided chest tubes without convincing evidence of pneumothorax. D/ / Jere East MD / Jere East MD Interpreting Provider: Jere East MD - VTE Documentation of Mechanical Device: Intermittent pneumatic compression device Consult Discharge Plan - Plan Referrals: Leah Howard MD [Partnered Physician] - (SENT WEB REQUEST ON 03-05-17 @ [phone]) Bobby Reina DO [Resident] - 03/16/17 3:20 pm (PLEASE FILL OUT THE NEW PATIENT PACKET BEING MAILED TO YOU AND TAKE TO YOUR APPOINTMENT. TAKE PICTURE ID, INS. CARD, AND ALL MEDICATIONS IN THE BOTTLES TO YOUR APPOINTMENT. TAKE YOUR DISCHARGE SUMMARY. SHOW UP 30 MINUTES EARLY FOR YOUR APPOINTMENT. IF YOU NEED TO CANCEL PLEASE CALL [phone] WITH 24 HOURS OF YOUR APPOINTMENT. THANKS) NONE,PCP [Primary Care Provider] -
[2017-03-09] MEDS: Ketorolac 15 MG/ML VIAL IVP SCH ×3 (00:47→12:03)
[2017-03-09] MEDS: Albuterol 2.5 MG/3 ML NEBULIZER IH SCH ×6 (03:48→22:54)
[2017-03-09] MEDS: *HR* HYDROmorphone 2 MG/ML SYRINGE IVP PRN (04:05)
[2017-03-09 05:08] LABS: Basophils # 0.1 K/mcL (0.0-0.2); Eosinophils # 0.2 K/mcL (0.0-0.6); Eosinophils % 4.6 %; Hematocrit 42.4 % (37.5-50.1); Hemoglobin 14.2 g/dL (12.9-16.9); Immature Granulocytes % 0.2 % (0-4); Lymphocytes # 1.5 K/mcL (0.6-4.6); Lymphocytes % 29.2 %; Mean Corpuscular HGB Conc 33.5 g/dL (31.6-35.5); Mean Corpuscular Hemoglobin 29.7 pg (28.0-33.3); Mean Corpuscular Volume 88.7 fL (83.0-100.0); Mean Platelet Volume 10.7 fL (9.4-12.4); Monocytes # 0.5 K/mcL (0.0-1.3); Monocytes % 9.7 %; Neutrophils # 2.7 K/mcL (1.6-8.9); Platelet Count 156 K/mcL (140-400); Red Blood Count 4.78 M/mcL (4.19-5.50); Red Cell Distribution Width 12.1 % (11.5-14.5); Segmented Neutrophils % 55.3 %
[2017-03-09] MEDS: *HR* Heparin 5,000 UNIT/ML VIAL SQ SCH ×2 (05:39→17:31)
[2017-03-09] MEDS: *HR* HYDROmorphone (PF) 1 MG/ML SYRINGE IVP PRN ×5 (08:29→20:33)
[2017-03-09] MEDS: amLODIPine 5 MG TABLET PO SCH (08:29)
--- NOTE | 2017-03-09 08:54 | Cardiothoracic Progress Note ---
Date of Encounter: 03/09/17 Time of Encounter: 08:52 - Assessment and plan (1) Pneumothorax, right Current Visit: No Status: Resolved The assessment and plan as outlined above was discussed with the patient and/or family members who expressed understanding and agreement. All questions were answered. We will leave the chest tube to suction today. - Subjective Interval history: The patient has no complaints. Vital Signs, Last 4 Hours Temp Pulse Resp BP Pulse Ox 03/09/17 08:21 82 03/09/17 07:36 98.4 F 73 16 140/91 97 03/09/17 07:32 78 03/09/17 05:46 98.5 F 64 16 135/89 95 Oxgyen Flow Rate Oxygen Flow Rate (LPM) 0 Clinical Data, last 8 Hours Output, Chest Tube Drainage 1 Amount [chest tube #2] Output, Chest Tube Drainage 10 Amount [chest tube #2] Output, Chest Tube Drainage 4 Amount [Right Lateral Chest] Output, Chest Tube Drainage 7 Amount [Right Lateral Chest] Output, Urine Amount 300 Output, Urine Amount 350 Weight 03/07/17 03/08/17 03/09/17 23:59 23:59 23:59 Weight 68.5 kg 68.3 kg 67.2 kg Lungs are clear to percussion and auscultation. Heart is in a normal sinus rhythm. His incision is healing well without signs of infection. Chest tubes had minimal drainage and no air leak. Chest x-ray reveals a tiny apical pneumothorax. - Labs 03/09/17 04:33 03/08/17 01:32 Lab Results, Last 24 hours 03/09/17 04:33 WBC 5.0 Hgb 14.2 Hct 42.4 Plt Count 156 - VTE Documentation of Mechanical Device: Intermittent pneumatic compression device Consult Discharge Plan - Plan Referrals: Leah Howard MD [Partnered Physician] - (SENT WEB REQUEST ON 03-05-17 @ [phone]) Bobby Reina DO [Resident] - 03/16/17 3:20 pm (PLEASE FILL OUT THE NEW PATIENT PACKET BEING MAILED TO YOU AND TAKE TO YOUR APPOINTMENT. TAKE PICTURE ID, INS. CARD, AND ALL MEDICATIONS IN THE BOTTLES TO YOUR APPOINTMENT. TAKE YOUR DISCHARGE SUMMARY. SHOW UP 30 MINUTES EARLY FOR YOUR APPOINTMENT. IF YOU NEED TO CANCEL PLEASE CALL [phone] WITH 24 HOURS OF YOUR APPOINTMENT. THANKS) NONE,PCP [Primary Care Provider] -
--- NOTE | 2017-03-09 09:25 | Internal Med Progress Note ---
Date of Encounter: 03/09/17 Time of Encounter: 09:25 - Assessment and plan (1) Recurrent spontaneous pneumothorax Current Visit: Yes Status: Acute Assessment and plan: Per CTS. CXR today with small apical pneumothroax No infiltrates Continue pain control, Decrease dilaudid to q3h (2) Marijuana use Current Visit: Yes Status: Chronic Assessment and plan: Encourage cessation (3) Hypertension Current Visit: Yes Status: Chronic Assessment and plan: BP since admission elevated, improved with Norvasc, continue same Qualifiers: Hypertension type: essential hypertension Qualified Code(s): I10 - Essential (primary) hypertension (4) Leukocytosis Current Visit: Yes Status: Resolved Assessment and plan: Afebrile, no evidence of infection, resolved without treatment Qualifiers: Leukocytosis type: unspecified Qualified Code(s): D72.829 - Elevated white blood cell count, unspecified - Subjective Interval history: Seen and evaluated a bedside No new complains POD#4 S/P Right thoracotomy with apical bleb resection Patient noted to be receiving Dilaudid hrly. - Constitutional Vitals: Temp Pulse Resp BP Pulse Ox 98.4 F 82 16 140/91 97 03/09/17 07:36 03/09/17 08:21 03/09/17 07:36 03/09/17 07:36 03/09/17 07:36 General appearance: Present: A&O X 3, pleasant, no acute distress - Head Head exam: Present: atraumatic, normocephalic - Eye Eye exam: Present: PERRL, conjuntiva pink, sclera anicteric Pupils: Present: PERRL - Neck Neck exam general surgery: Present: supple, trachea midline. Absent: lymphadenopathy - Respiratory Respiratory exam: Present: CTAB. Absent: accessory muscle use, rales, rhonchi, wheezes - Cardiovascular Cardiovascular exam: Present: RRR, +S1, +S2. Absent: diastolic murmur, gallop, rubs, systolic murmur Additional comments: Chest tube connected to suction, dressing clean and dry - GI/Abdominal GI/Abdominal exam: Present: normal bowel sounds, soft, no peritoneal signs. Absent: distended, tenderness - Extremities Exam Extremities exam: Present: warm, radial pulses palpable and symetrical. Absent : calf tenderness, cyanotic, pedal edema - Neurological Exam Neurological exam: Present: alert, CN II-XII intact, oriented X3, no focal deficits. Absent: pronater drift, facial droop, speech deficit - Skin Skin exam: Present: dry, intact Internal Medicine: Result - Labs CBC & Chem 7: 03/09/17 04:33 03/08/17 01:32 Labs: Short CBC 03/09/17 Range/Units 04:33 WBC 5.0 (4.3-11.1) K/mcL Hgb 14.2 (12.9-16.9) g/dL Hct 42.4 (37.5-50.1) % Plt Count 156 (140-400) K/mcL Neutrophils # 2.7 (1.6-8.9) K/mcL - Impressions Impressions Chest X-Ray 03/09/17 06:00 IMPRESSION: There are two right-sided chest tubes with a minimal right apical pneumothorax. No other acute process. D/ / 03/09/2017 07:41:15 Donna Trin[facility] Inter[facility]ting Provider: Donna Trinh MD - VTE Documentation of Mechanical Device: Intermittent pneumatic compression device Consult Discharge Plan - Plan Referrals: Leah Howard MD [Partnered Physician] - (SENT WEB REQUEST ON 03-05-17 @ [phone]) Bobby Reina DO [Resident] - 03/16/17 3:20 pm (PLEASE FILL OUT THE NEW PATIENT PACKET BEING MAILED TO YOU AND TAKE TO YOUR APPOINTMENT. TAKE PICTURE ID, INS. CARD, AND ALL MEDICATIONS IN THE BOTTLES TO YOUR APPOINTMENT. TAKE YOUR DISCHARGE SUMMARY. SHOW UP 30 MINUTES EARLY FOR YOUR APPOINTMENT. IF YOU NEED TO CANCEL PLEASE CALL [phone] WITH 24 HOURS OF YOUR APPOINTMENT. THANKS) NONE,PCP [Primary Care Provider] -
[2017-03-09] MEDS ORDERED: *HR* HYDROmorphone 2 MG/ML SYRINGE IVP PRN (15:06)
[2017-03-10] MEDS: Albuterol 2.5 MG/3 ML NEBULIZER IH SCH ×5 (03:38→19:51)
[2017-03-10] MEDS: *HR* HYDROmorphone (PF) 1 MG/ML SYRINGE IVP PRN ×6 (03:48→22:26)
[2017-03-10] MEDS: *HR* Heparin 5,000 UNIT/ML VIAL SQ SCH ×2 (06:16→17:30)
[2017-03-10] MEDS: amLODIPine 5 MG TABLET PO SCH (07:25)
--- NOTE | 2017-03-10 07:37 | Cardiothoracic Progress Note ---
Date of Encounter: 03/10/17 Time of Encounter: 07:35 - Assessment and plan (1) Recurrent spontaneous pneumothorax Current Visit: Yes Status: Acute The patient is covering well from his right thoracotomy with apical bleb resection and mechanical pleurodesis. He is breathing comfortably. His postoperative pain is fairly well controlled. The air leak has resolved and the chest tubes were placed to waterseal. He will continue ambulating in the hallways today. If the patient has no air leak on water seal and the x-ray tomorrow running shows no pneumothorax, the chest tubes will be removed. The assessment and plan as outlined above was discussed with the patient and/or family members who expressed understanding and agreement. All questions were answered. - Subjective Procedure(s) Performed: POD#5 S/P Right thoracotomy with apical bleb resection Interval history: The patient remained hemodynamically stable overnight. He is breathing comfortably. His postoperative pain is fairly well controlled with intravenous Dilaudid. Vital Signs, Last 4 Hours Temp Pulse Resp BP Pulse Ox 03/10/17 07:06 97.9 F 68 19 126/87 99 03/10/17 03:55 70 03/10/17 03:46 98.0 F 65 17 126/90 98 Oxgyen Flow Rate Oxygen Flow Rate (LPM) 0 Clinical Data, last 8 Hours Output, Chest Tube Drainage 2 Amount [chest tube #2] Output, Chest Tube Drainage 2 Amount [Right Lateral Chest] Output, Urine Amount 480 Output, Urine Amount 400 Weight 03/08/17 03/09/17 03/10/17 23:59 23:59 23:59 Weight 68.3 kg 67.2 kg 66 kg - Physical Examination General: Conversant, No Apparent Distress Neck: No JVD, Normal carotid pulses Cardiac: Reg Rate and Rhythm, Normal S1 and S2, No Murmur Incision: No signs of infection, Dry/intact dressing Chest tubes: Minimal drainage, Other (No air leak.) Lungs: Normal Breath Sounds, No Wheeze, Rales, Rhonchi Neuro: Alert and responsive, No focal deficits noted Vascular: Normal capillary refill Extremities: No Clubbing, No Cyanosis, No Edema, Normal Pulses - Labs 03/09/17 04:33 03/08/17 01:32 - Imaging Chest Xray: image reviewed (No pneumothorax.) - VTE Documentation of Mechanical Device: Intermittent pneumatic compression device Consult Discharge Plan - Plan Referrals: Leah Howard MD [Partnered Physician] - (SENT WEB REQUEST ON 03-05-17 @ [phone]) Bobby Reina DO [Resident] - 03/16/17 3:20 pm (PLEASE FILL OUT THE NEW PATIENT PACKET BEING MAILED TO YOU AND TAKE TO YOUR APPOINTMENT. TAKE PICTURE ID, INS. CARD, AND ALL MEDICATIONS IN THE BOTTLES TO YOUR APPOINTMENT. TAKE YOUR DISCHARGE SUMMARY. SHOW UP 30 MINUTES EARLY FOR YOUR APPOINTMENT. IF YOU NEED TO CANCEL PLEASE CALL [phone] WITH 24 HOURS OF YOUR APPOINTMENT. THANKS) NONE,PCP [Primary Care Provider] -
--- NOTE | 2017-03-10 09:26 | Internal Med Progress Note ---
Date of Encounter: 03/10/17 Time of Encounter: 09:26 - Assessment and plan (1) Recurrent spontaneous pneumothorax Current Visit: Yes Status: Acute Assessment and plan: Per CTS. CXR today no pneumothroax No infiltrates Continue pain control, Continue to taper dilaudid (2) Marijuana use Current Visit: Yes Status: Chronic Assessment and plan: Encourage cessation (3) Hypertension Current Visit: Yes Status: Chronic Assessment and plan: BP since admission elevated, improved with Norvasc, continue same Qualifiers: Hypertension type: essential hypertension Qualified Code(s): I10 - Essential (primary) hypertension (4) Leukocytosis Current Visit: Yes Status: Resolved Assessment and plan: Afebrile, no evidence of infection, resolved without treatment Qualifiers: Leukocytosis type: unspecified Qualified Code(s): D72.829 - Elevated white blood cell count, unspecified - Subjective Interval history: Seen and evaluated a bedside No new complains POD#5 S/P Right thoracotomy with apical bleb resection, and manual pleurodesis - Constitutional Vitals: Temp Pulse Resp BP Pulse Ox 97.9 F 72 17 126/87 99 03/10/17 07:06 03/10/17 07:30 03/10/17 07:53 03/10/17 07:06 03/10/17 07:53 General appearance: Present: A&O X 3, pleasant, no acute distress - Head Head exam: Present: atraumatic, normocephalic - Eye Eye exam: Present: PERRL, conjuntiva pink, sclera anicteric Pupils: Present: PERRL - ENT Additional comments: Poor oral dentition - Neck Neck exam general surgery: Present: supple, trachea midline. Absent: lymphadenopathy - Respiratory Respiratory exam: Present: CTAB. Absent: accessory muscle use, rales, rhonchi, wheezes - Cardiovascular Cardiovascular exam: Present: RRR, +S1, +S2. Absent: diastolic murmur, gallop, rubs, systolic murmur - GI/Abdominal GI/Abdominal exam: Present: normal bowel sounds, soft, no peritoneal signs. Absent: distended, tenderness - Extremities Exam Extremities exam: Present: warm, radial pulses palpable and symetrical. Absent : calf tenderness, cyanotic, pedal edema - Neurological Exam Neurological exam: Present: alert, CN II-XII intact, oriented X3, no focal deficits. Absent: pronater drift, facial droop, speech deficit - Skin Skin exam: Present: dry, intact Internal Medicine: Result - Labs CBC & Chem 7: 03/09/17 04:33 03/08/17 01:32 - Impressions Impressions Chest X-Ray 03/10/17 00:01 IMPRESSION: Right-sided chest tubes in place. No appreciable right pneumothorax seen. D/ / 03/10/2017 07:50:10 Howie Jones MD / [email or web address] Interpreting Provider: Howie Jones MD - VTE Documentation of Mechanical Device: Intermittent pneumatic compression device Consult Discharge Plan - Plan Referrals: Leah Howard MD [Partnered Physician] - 03/26/17 1:30 pm () Bobby Reina DO [Resident] - 03/16/17 3:20 pm (PLEASE FILL OUT THE NEW PATIENT PACKET BEING MAILED TO YOU AND TAKE TO YOUR APPOINTMENT. TAKE PICTURE ID, INS. CARD, AND ALL MEDICATIONS IN THE BOTTLES TO YOUR APPOINTMENT. TAKE YOUR DISCHARGE SUMMARY. SHOW UP 30 MINUTES EARLY FOR YOUR APPOINTMENT. IF YOU NEED TO CANCEL PLEASE CALL [phone] WITH 24 HOURS OF YOUR APPOINTMENT. THANKS) NONE,PCP [Primary Care Provider] -
[2017-03-10] MEDS: *HR* HYDROcodone/Acet 5/325 mg TABLET PO PRN ×3 (10:32→22:26)
[2017-03-11] MEDS: Albuterol 2.5 MG/3 ML NEBULIZER IH SCH ×3 (00:26→08:00)
[2017-03-11] MEDS: *HR* HYDROmorphone (PF) 1 MG/ML SYRINGE IVP PRN (05:29)
[2017-03-11] MEDS: *HR* Heparin 5,000 UNIT/ML VIAL SQ SCH (05:30)
[2017-03-11 06:49] VITALS: BP 121/78
--- NOTE | 2017-03-11 08:01 | Discharge Summary ---
Date of Encounter: 03/11/17 Time of Encounter: 07:59 - Discharge Diagnosis (1) Recurrent spontaneous pneumothorax Priority: Primary Status: Acute - Discharge Medications Prescriptions: HYDROcodone/Acet 5/325 mg [Chloe 5-325 mg] 1 tab PO Q4HR PRN #50 tab PRN Reason: Moderate Pain Home Medications: HYDROcodone/Acet 5/325 mg [Chloe 5-325 mg] 1 tab PO Q4HR PRN #50 tab 03/11/17 [ Rx] Allergies/Adverse Reactions: Allergies Penicillins Allergy (Verified 03/04/17 09:32) Rash Date of admission: 03/04/17 11:50 Primary care physician: PCP NONE Consults: 03/08/17 12:36 Consult to Laboratory Supervisor [CONS] Routine Reason for SW Consult: Needs help with his home Procedure(s) Performed: 1. Right posterolateral thoracotomy performed March 05, 2017. 2. Right apical bleb resection performed March 05, 2017. 3. Mechanical pleurodesis performed March 05, 2017. 4. Intercostal nerve block 5 performed March 05, 2017. Discharging clinician: Leah Howard Anticipated date of discharge: 03/11/17 - Patient Status Disposition: Home, Self-Care Condition: Good Functional capacity at discharge: independent ambulation Overall status at discharge: patient is progressing back to baseline - Discharge Instructions Follow Up With: Leah Howard MD [Partnered Physician] - 03/26/17 1:30 pm () Bobby Reina DO [Resident] - 03/16/17 3:20 pm (PLEASE FILL OUT THE NEW PATIENT PACKET BEING MAILED TO YOU AND TAKE TO YOUR APPOINTMENT. TAKE PICTURE ID, INS. CARD, AND ALL MEDICATIONS IN THE BOTTLES TO YOUR APPOINTMENT. TAKE YOUR DISCHARGE SUMMARY. SHOW UP 30 MINUTES EARLY FOR YOUR APPOINTMENT. IF YOU NEED TO CANCEL PLEASE CALL [phone] WITH 24 HOURS OF YOUR APPOINTMENT. THANKS) NONE,PCP [Primary Care Provider] - Forms: ED Satisfaction Letter - Diet and Activity Activity: no driving for four weeks, no lifting greater than 10 pounds for eight weeks Diet: advance to your usual diet - Hospital Course Hospital course: Mr. García is a 36 year old otherwise healthy man with 4 previous right spontaneous pneumothoraces. The patient's last admission was November 27, 2016 when he had sudden onset of right-sided chest pain and shortness of breath. A chest x-ray performed at that time revealed a spontaneous right pneumothorax and he was treated with a chest tube. At that time the patient was recommended for right thoracotomy, apical bleb resection, and mechanical pleurodesis; however, the patient declined, stating that he needed to return to work. He stated that he would consider the operation during the winter months when he was unable to work. The patient did well until the morning of admission when he awoke from sleep. The patient states that he was stretching when he felt sudden onset of right subscapular pain radiating around to his right anterior chest. The pain progressed and was associated with shortness of breath. The patient "knew what he had" and was evaluated at [facility] emergency department. The chest x-ray revealed near complete collapse of his right lung and a chest tube was inserted. This resolved the pneumothorax with the exception of a small right apical airspace. I spoke with the patient regarding the need for operative intervention and at this time he agrees, stating that he was "fired from his job because of his pneumothorax. " The patient underwent a right posterolateral thoracotomy with apical bleb resection and mechanical pleurodesis on March 05, 2017. The patient's postoperative course was uncomplicated. He had a small air leak for the first 2- 3 days which eventually resolved. He was ambulating in the hallways without difficulty. Chest tubes were placed on waterseal and the chest x-ray showed only a small right apical pneumothorax. The chest tubes were removed on POD #6. He was discharged home in good condition. - Time Spent with Patient Total time spent providing and/or coordinating discharge services: Physical Examination Vital Signs, Last 4 Hours Temp Pulse Resp BP Pulse Ox 03/11/17 06:44 97.9 F 61 17 121/78 98 General: Conversant, No Apparent Distress Neck: No JVD, Normal carotid pulses Cardiac: Reg Rate and Rhythm, Normal S1 and S2, No Murmur Lungs: Normal Breath Sounds, No Wheeze, Rales, Rhonchi Neuro: Alert and responsive, No focal deficits noted Vascular: Normal capillary refill Extremities: No Clubbing, No Cyanosis, No Edema, Normal Pulses - VTE Documentation of Mechanical Device: Intermittent pneumatic compression device
[2017-03-11] MEDS: amLODIPine 5 MG TABLET PO SCH (08:25)
--- NOTE | 2017-03-11 12:42 | Event Note ---
Date of Encounter: 03/11/17 Time of Encounter: 09:00 Patient was not reviewed today, he has been discharged by Cardiothoracic surgery
== END 2017-03-11 08:39 | disposition home or self-care (01) | DRG 121 ==
LOC: EMEROO 09:18 → 2ANU 11:50 → SUATTDRO 11:50 → 2ANU 13:08 → 2NNU 03-05 11:07
PROVIDERS: ADMIT Internal Medicine; ATTEND Internal Medicine